=== PATIENT | male | born 1985 | race Caucasian/White ===

== ENCOUNTER 2019-04-15 11:59 | Emergency (ER) | payer OTHER, SELFPAY ==
[2019-04-15 12:01] VITALS: BP 137/87; PULSE 54; RESP 16; TEMP 36.4; O2SAT 98; BMI 30.1
--- NOTE | 2019-04-15 12:27 | CT_ITS ---
STUDY: CT ABDOMEN AND PELVIS WITHOUT CONTRAST REASON FOR EXAM: Male, 33 years old. Right flank pain x2 days RADIATION DOSAGE (If Supplied By Facility): CTDIvol = ( 11.25 ) mGy, DLP = ( 546.33 ) mGycm TECHNIQUE: Transaxial images were obtained from the dome of the diaphragm to the symphysis pubis without oral contrast, and without intravenous contrast. Sagittal and coronal images were reconstructed. Individualized dose optimization techniques were used for this CT. COMPARISON: None. FINDINGS: The visualized lung bases are unremarkable. The visualized portions of the heart are within normal limits. Normal liver. Normal gallbladder and extrahepatic biliary system. Normal spleen. Normal pancreas. Normal bilateral adrenal glands. Normal right kidney. Normal left kidney. Normal visualized stomach. Normal small intestine. Normal colon. The appendix is visualized and appears normal. Appendix best seen on coronal recon image 54 Normal abdominal aorta. Normal inferior vena cava. Normal retroperitoneum. Normal urinary bladder. Normal abdominal wall. Normal osseous structures. CT/Abdomen/Pelvis without Cont IMPRESSION: No suspicious solid organ abnormality specifically, no obstructive uropathy. No CT evidence of an acute inflammatory process, normal appendix visualized No free intraperitoneal fluid, air, or suspicious adenopathy Electronically Signed: Donte Schwarz MD at 13:17 EDT , Service support ,
--- NOTE | 2019-04-15 12:40 | ED.VIS.GEN ---
History of Present Illness Chief Complaint: Back Informant: Patient Onset: - April 13 Context: Sudden Onset Timing: Continuous, Waxes and wanes Quality: Pain Location: Right flank and right anterior abdomen Current Severity: Mild Maximum Severity: Severe Worsened by: Nothing Relieved by: Nothing Associated Symptoms: Nausea, vomiting and urgency Narrative: Patient is a healthy 33-year-old male presents with abrupt onset of right flank pain that radiated anteriorly and is waxing and waning nature. Pain is been constant since onset. He does report urgency. Denies history of renal or ureterolithiasis. He denies respiratory cardiac symptoms. He denies dysuria, frequency or hematuria. He denies food intolerance. He denies anorexia. He denies history of trauma. Prior similar symptoms: No Recent Illness/Hospitalization: No - Past Medical History (1) No significant past medical history Status: Acute Past Medical History - Allergies and Home Meds Allergies/Adverse Reactions: Allergies No Known Allergies Allergy (Verified 04/15/19 12:00) Primary Care Physician: Isaac Ryan [Primary Care Provider] - Prior records reviewed: No Past Medical History: None Surgical History: no surgical history Lives: Alone Smoking Status: Never smoker Drugs: None Review of Systems General: Denies: Chills, Fever, Sweats Eyes: Denies: Visual changes - bilaterally, Diplopia ENT: Denies: Rhinorrhea, Sore throat Cardiovascular: Denies: Chest pain, Palpitations Respiratory: Denies: Dyspnea, Cough, Dyspnea on exertion Gastrointestinal: Reports: Abdominal pain, Nausea, Vomiting. Denies: Diarrhea, Constipation, Melena, Hematochezia, -, - Genitourinary: Reports: - - Positive for urgency. Denies: Dysuria, Hematuria, Frequency Musculoskeletal: Reports: Back pain - Right flank. Denies: Myalgias, Arthralgias, Neck pain, Swelling, Extremity Pain, -, - Skin: Denies: Rash, Wounds Neurological: Denies: Headache, Weakness, Numbness Hematologic: Denies: Easy bruising, Easy bleeding Allergy: Denies: Uticaria, Swelling of the mouth Physical Exam Vital Signs/Narrative: Vital Signs Temp Pulse Resp BP Pulse Ox 04/15/19 12:01 97.6 F L 54 L 16 137/87 H 98 Inital Vital Signs reviewed: Yes General: Well nourished, Well developed, Acute Distress Head: Normocephalic, Atraumatic Eyes: Perrl, EOMI ENT: Moist mucous membranes, No rhinorrhea Neck: Supple, Nontender, No lymphadenopathy, No JVD Cardiovascular: Regular rate, Regular rhythm, No murmurs, Normal S1, Normal S2 Respiratory: No distress, CTA bilaterally, Chest nontender Abdomen: Soft, Nontender, Nondistended, Normal bowel sounds, No masses Back: Nontender, Normal Inspection, CVA tenderness - Right Extremities: Nontender, No edema Skin: Normal color, No rash Neurological: Alert, Oriented x3, Cranial nerves II-XII grossly intact, Normal Strength, Normal Sensation Psychological: Normal affect, Normal Mood Diagnostic/Tx/Re-eval Impressions Abdomen/Pelvis CT 04/15/19 12:27 IMPRESSION: No suspicious solid organ abnormality specifically, no obstructive uropathy. No CT evidence of an acute inflammatory process, normal appendix visualized No free intraperitoneal fluid, air, or suspicious adenopathy Electronically Signed: Donte Schwarz MD at 13:17 EDT , Service support , 04/15/19 12:27 Abdomen/Pelvis without Cont [CT] Stat Laboratory Results 04/15/19 04/15/19 12:05 12:52 Sodium 137 Potassium 3.8 Chloride 105 Carbon Dioxide 29.0 Anion Gap 3 L BUN 11 Creatinine 1.02 Estim Creat Clear Calc 83.68 Est GFR (MDRD) Af Amer 109 Est GFR (MDRD) Non-Af 90 BUN/Creatinine Ratio 10.8 Glucose 100 Calcium 8.6 Urine Color Yellow Urine Clarity Clear Urine pH 7.0 Ur Specific [place] 1.005 Urine Protein Negative Urine Glucose (UA) Normal Urine Ketones Negative Urine Occult Blood Negative Urine Nitrite Negative Urine Bilirubin Negative Urine Urobilinogen Normal Ur Leukocyte Esterase Negative Urine RBC 0 SEEN Urine WBC 0 SEEN Ur Squamous Epith Cells 0 SEEN Urine Bacteria 0 SEEN Urine Mucus 0 SEEN She was informed that pain is unknown. He does appear in discomfort. He may have a nonvisualized stone. Will discharge with short course of opiate analgesia. - Medical Decision Making History of acute right flank pain urgency nausea and vomiting will obtain CT of the abdomen and appropriate blood work to assess for renal/ureterolithiasis versus other causes of his left flank pain. He was medicated with IV Toradol and Zofran. Patient's work-up was unremarkable. He is to be discharged to home and follow-up with PCP. ED Disposition - Plan for ED Patient: Disposition: Home or Assisted Living Diagnosis: Acute left flank pain Instructions: FLANK PAIN, Uncertain Cause Prescriptions: Hydrocodone Bitart/Apap 5-325 [[place] 5MG-325MG] 1 tab PO Q6H PRN PRN 3 Days #10 tab PRN Reason: Pain Prescription Printed Referrals: Isaac Ryan [Primary Care Provider] - 3-5 Days if not improving
[2019-04-15 12:45] LABS: Bacteria 0 SEEN /hpf (None Seen); Mucous, Urine 0 SEEN /hpf (<or=2+); Red Blood Cells-Urine 0 SEEN /hpf (0-5); Squamous Epithelial Cells - UA 0 SEEN /hpf (0-5); White Blood Cells 0 SEEN /hpf (0-5)
[2019-04-15] MEDS: Ondansetron 4 MG/2 ML Vial IV (12:48)
[2019-04-15] MEDS: Ketorolac 30 MG/ML Syringe 15 MG IV (12:48)
[2019-04-15] MEDS: 0.9% Normal Saline 1,000 ML 250 ML IV (12:48)
[2019-04-15 12:51] LABS: Color, Urine Yellow (Yellow); Glucose, Dipstick Normal (Normal); Ketone-Dipstick Negative (Negative); Leukocyte Esterase-Dipstick Negative /ul (Negative); Nitrite-Dipstick Negative (Negative); Occult Blood-Urine Negative /ul (Negative); Protein-Dipstick Negative (Negative); Specific Gravity, Urine 1.005 (1.002-1.030); Urine Bilirubin Dipstick Negative (Negative); Urine Clarity Clear (Clear); Urine Urobilinogen Normal (Normal)
[2019-04-15 13:29] LABS: Anion Gap 3 (5-15); BUN 11 mg/dL (7-18); BUN/Creat Ratio 10.8 RATIO (10-20); Calcium,Total 8.6 mg/dL (8.5-10.1); Chloride 105 mmol/L (98-107); Creatinine, Serum 1.02 mg/dL (0.70-1.30); EST Glomerular Filtration Rate 90 mL/min (>60); Est Glom Filt Rate - Afr Amer 109 mL/min (>60); Estimated Creatinine Clearance 83.68 ml/min; Glucose 100 mg/dL (74-106); Potassium 3.8 mmol/L (3.5-5.1); Sodium Level 137 mmol/L (136-145)
[2019-04-15 13:45] VITALS: BP 106/71; PULSE 51; RESP 16; O2SAT 100
== END 2019-04-15 14:43 | disposition home or self-care (01) ==
PROVIDERS: Emergency Provider Emergency Medicine; Family Provider Family Medicine; PCP Family Medicine
DX: R10.9 Unspecified abdominal pain (principal)
CPT/HCPCS: 74176; 80048; 81001; 99283; J7030; A4216; J2405

== ENCOUNTER → 2020-11-30 11:51 | Outpatient (CLI) | payer OTHER, SELFPAY ==
[2020-11-30 15:11] LABS: Absolute Lymphocyte Count 1.68 X10^3/uL (0.83-4.51); Absolute Neutrophil Count 2.6 X10^3/uL (2.0-7.7); Basophil# 0.02 X10^3/uL; Basophil% 0.4 % (0-1); Eosinophil# 0.04 X10^3/uL; Eosinophils% 0.8 % (0-5); Hematocrit 48.2 % (40-54); Hemoglobin 16.2 g/dL (13.0-16.5); Lymphocyte # 1.68 X10^3/ul (4.0); Lymphocyte % 35.1 % (19-41); Mean Corp Hgb Conc 33.6 g/dL (32-36); Mean Corpuscular Hgb 29.1 pg (27.0-32.0); Mean Corpuscular Volume 86.5 fL (80-94); Mean Platelet Vol. 10.9 fl (6.2-12.0); Monocyte% 8.4 % (0-10); NRBC Flagged by Analyzer 0 % (0-5); Neutrophil # 2.62 X10^3/uL (2.7-7.7); Neutrophil % 54.9 % (47-70); Platelet Count 193 K/mm3 (150-450); RBC Distribution Width CV 11.9 % (11.6-14.6); Red Blood Count 5.57 M/mm3 (4.6-6.2); White Blood Count 4.8 K/mm3 (4.4-11.0)
[2020-11-30 15:43] LABS: ALB/GLOB Ratio 1.5 RATIO (0.9-2.4); AST(SGOT) 30 U/L (15-37); Alanine Aminotransfer ALT/SGPT 57 U/L (16-61); Albumin, Serum 4.4 g/dL (3.2-5.0); Alkaline Phosphatase 96 U/L (45-117); Anion Gap 5 (5-15); BUN 16 mg/dL (7-18); BUN/Creat Ratio 16.1 RATIO (10-20); Calcium,Total 9.1 mg/dL (8.5-10.1); Chloride 106 mmol/L (98-107); EST Glomerular Filtration Rate 91 mL/min (>60); Est Glom Filt Rate - Afr Amer 111 mL/min (>60); Free T3 3.2 pg/mL (2.18-3.98); Glucose 101 mg/dL (74-106); Potassium 4.2 mmol/L (3.5-5.1); Protein, Total 7.4 g/dL (6.4-8.2); Sodium Level 139 mmol/L (136-145); T4 Total, Thyroxin 8.5 ug/dL (4.5-12.1); Thyroid Stim Hormone (TSH) 0.96 uIU/mL (0.358-3.74)
[2020-12-03 07:44] LABS: Immunoglobulin A 301 mg/dL (90-386); t-Transglutaminase IgA <2 U/mL (0-3)
== END ==
LOC: MTLAB 12:00
PROVIDERS: PCP Family Medicine
DX: R10.9 Unspecified abdominal pain (principal); R19.5 Other fecal abnormalities; Z80.0 Family history of malignant neoplasm of digestive organs; Z86.010 Personal history of colon polyps
CPT/HCPCS: 36415; 80053; 82784; 83516; 84436; 84443; 84481; 85025

== ENCOUNTER 2021-05-29 09:50 | Emergency (ER) | payer OTHER, SELFPAY ==
[2021-05-29 09:51] VITALS: BP 119/89; PULSE 64; RESP 6; TEMP 36.1; O2SAT 100; BMI 33.6
--- NOTE | 2021-05-29 09:59 | NURSING ---
NO OLD EKGS
--- NOTE | 2021-05-29 10:07 | RAD_ITS ---
STUDY: X-RAY CHEST REASON FOR EXAM: Male, 35 years old. Chest pain and chest pressure. TECHNIQUE: Single AP portable view of the chest. COMPARISON: None. FINDINGS: The lungs are clear and expanded. There is no demonstrated pleural abnormality. Normal size heart. Normal mediastinum and danii. Normal visualized pulmonary arteries. Normal visualized aortic arch and descending thoracic aorta. Normal visualized thoracic spine. Normal visualized ribs, clavicles, and shoulders. There is no demonstrated abnormality of the visualized soft tissue structures of the upper abdomen. RAD/Chest 1 View (Portable) IMPRESSION: Normal x-ray examination of the chest. Electronically Signed: Gerber Sherwood MD at 10:53 EDT , Service support ,
--- NOTE | 2021-05-29 10:08 | ED.VIS.CHEST ---
HPI History of Present Illness Chief Complaint: Chest Pain Narrative Narrative: Patient presents with upper respiratory symptoms for the past few days, he has rhinorrhea sinus congestion and a cough which has improved, however he had some chest pain yesterday. He had 2 different negative Covid test. He has no fever or chills. Today he is presenting with sharp stabbing retrosternal chest pain. No pleuritic component. No lower extremity edema or calf pain. No DVT or PE risk factors. PFSH PFSH Home Medications naproxen [Naprosyn] 500 mg PO BID #20 tab 05/29/21 [Rx Last Taken Unknown] Allergy/AdvReac Type Severity Reaction Status Date / Time No Known Allergies Allergy Verified 04/15/19 12:00 Social History Smoking Status: Never smoker ROS ROS ED ROS Narrative Past medical history: Reviewed, no medical problems Medications: Reviewed Social history: Noncontributory Review of systems: All systems negative except as indicated General: No fever Eyes: No visual changes ENT: Upper airway congestion as in HPI Neck: No neck pain Cardiovascular: Nonpleuritic sharp stabbing chest pain as in HPI Respiratory: No shortness of breath or cough Gastrointestinal: No abdominal pain, nausea vomiting or diarrhea Genitourinary: No dysuria Musculoskeletal: Denies myalgias no difficulty with ambulation Skin: No rash Neurological: No memory loss, confusion or any focal weakness Psych: No recent behavioral changes Hematologic: No easy bleeding or easy bruising EXAM Physical Exam Narrative Exam Narrative: Physical exam General: Well nourished, Well developed, No Acute Distress Head: Normocephalic, Atraumatic Eyes: Conjunctiva not pale ENT: Moist mucous membranes. There is rhinorrhea and upper airway congestion. Normal soft palate. No pharyngeal erythema other than some postnasal drip. Neck: Supple, Nontender, No lymphadenopathy Cardiovascular: Regular rate, Regular rhythm Respiratory: No distress, CTA bilaterally. Chest wall: There is some reproducible retrosternal and parasternal pain bilaterally. Abdomen: Soft, Nontender, Nondistended Back: Nontender, Normal Inspection. Negative for: CVA tenderness Extremities: Nontender, No edema Skin: Normal color, No rash Neurological: Alert, Normal Strength, Normal Sensation Psychological: Normal affect Const Vital Signs: 05/29/21 09:51 Temperature 96.9 F L Temperature Source Temporal Pulse Rate 64 Respiratory Rate 6 L Blood Pressure 119/89 H Blood Pressure Mean 99 Pulse Ox 100 Oxygen Delivery Method Room Air Heart Score History: Slightly/Non-Suspicious ECG: Normal Age: </= 45 years Risk Factors: 1 or 2 Risk Factors Troponin: </= Normal Limit Score: 1 MDM MDM MDM Narrative Medical decision making narrative: Patient has a normal work-up. He appears well. He does not have any DVT or PE risk factors. He will be discharged with NSAIDs. Lab Data Labs: Laboratory Results - last 24 hr 05/29/21 10:45 Troponin I High Sens 5 Radiography Diagnostic Testing: Radiology Impression Chest X-Ray 05/29/21 10:07 IMPRESSION: Normal x-ray examination of the chest. Electronically Signed: Gerber Sherwood MD at 10:53 EDT , Service support , Discharge Plan Triage Chief Complaint: Chest Pain ED Provider: Fer Lopez Dx/Rx/DC Orders Clinical Impression: Acute upper respiratory infection, Acute chest wall pain Instructions: Pleurisy, ED URI, Viral, No Abx (Adult) Prescriptions: New naproxen [Naprosyn] 500 mg tablet 500 mg PO BID Qty: 20 RF: 0 Primary Care Provider: Isaac Ryan Referrals: Isaac Ryan MD [Primary Care Provider] - 2 Days Disposition Disposition: Home, Self Care
--- NOTE | 2021-05-29 10:32 | EKG12_ITS ---
Test Reason : CP Blood Pressure : / mmHG Vent. Rate : 051 BPM Atrial Rate : 051 BPM P-R Int : 188 ms QRS Dur : 090 ms QT Int : 424 ms P-R-T Axes : -13 -13 006 degrees QTc Int : 390 ms Sinus bradycardia Otherwise normal ECG Confirmed by AFRICA BANKS, TAWANNA ([id number]), field map editor ARSH GUZMAN ([id number]) on 05/31/2021 9:09:36 AM Referred By: RHONDA/BRANDAN Confirmed By:TAWANNA LEGER MD
--- NOTE | 2021-05-29 10:37 | NURSING ---
NO OLD EKGS
[2021-05-29 11:11] LABS: Troponin-I HS 5 pg/mL (3.0-78.0)
[2021-05-29 12:43] VITALS: BP 116/74; PULSE 85; RESP 16; O2SAT 98
== END 2021-05-29 12:43 | disposition home or self-care (01) ==
PROVIDERS: Emergency Provider Emergency Medicine; PCP Family Medicine
DX: J06.9 Acute upper respiratory infection, unspecified (principal); R07.89 Other chest pain; Z20.822 Contact with and (suspected) exposure to COVID-19; Z79.1 Long term (current) use of non-steroidal anti-inflammatories (NSAID)
CPT/HCPCS: 36415; 71045; 84484; 93005; 99282

== ENCOUNTER 2021-07-02 18:36 | Emergency (ER) | payer OTHER, SELFPAY ==
[2021-07-02 18:37] VITALS: BP 119/81; PULSE 82; RESP 18; TEMP 37.2; O2SAT 97; BMI 32.9
[2021-07-02 18:58] LABS: Absolute Lymphocyte Count 2.45 X10^3/uL (0.83-4.51); Absolute Neutrophil Count 4.1 X10^3/uL (2.0-7.7); Basophil# 0.03 X10^3/uL; Basophil% 0.4 % (0-1); Eosinophil# 0.06 X10^3/uL; Eosinophils% 0.8 % (0-5); Hematocrit 44.1 % (40-54); Hemoglobin 15.6 g/dL (13.0-16.5); Lymphocyte # 2.45 X10^3/ul (0.83-4.51); Lymphocyte % 33.8 % (19-41); Mean Corp Hgb Conc 35.4 g/dL (32-36); Mean Corpuscular Hgb 29.7 pg (27.0-32.0); Mean Platelet Vol. 9.8 fl (6.2-12.0); Monocyte# 0.63 X10^3/uL; Monocyte% 8.7 % (0-10); NRBC Flagged by Analyzer 0 % (0-5); Neutrophil # 4.05 X10^3/uL (2.7-7.7); Platelet Count 208 K/mm3 (150-450); RBC Distribution Width CV 12.1 % (11.6-14.6); RBC Distribution Width SD 36.4 fl (35.1-43.9); Red Blood Count 5.25 M/mm3 (4.6-6.2); White Blood Count 7.2 K/mm3 (4.4-11.0)
--- NOTE | 2021-07-02 19:08 | EDS_ITS ---
HPI HPI - GI History of Present Illness Chief Complaint: Abd Pain Narrative Narrative: 35-year-old male presenting with right lower quadrant abdominal pain. He states he woke up early this morning with a dull ache and is persistently been getting worse over the course of the day. He does not have nausea or vomiting. He does have loose stool chronically but states it is a little bit looser today. He has not had a fever. Patient states his only surgical history is gallbladder removal. Patient has no daily medications that he takes. PFSH PFSH Allergy/AdvReac Type Severity Reaction Status Date / Time No Known Allergies Allergy Verified 07/02/21 18:36 Surgical History History of cholecystectomy Social History Smoking Status: Never smoker ROS ROS ED Constitutional Constitutional ED: Denies chills, fever(s) or subjective ENT ENT ED: Denies rhinorrhea or sore throat Cardiovascular Cardiovascular: Denies chest pain or palpitations Respiratory/Chest Respiratory/Chest: Denies cough or dyspnea Gastrointestinal Gastrointestinal: Reports abdominal pain and diarrhea; Denies constipation or vomiting Genitourinary Genitourinary ED: Denies dysuria or hematuria Musculoskeletal Musculoskeletal: Denies arthralgias or myalgias Integumentary Denies Abrasions or rash Neurologic Neurologic: Denies headache(s) EXAM Physical Exam Const Vital Signs: 07/02/21 18:37 07/02/21 20:28 07/02/21 22:14 Temperature 99.0 F Temperature Source Temporal Pulse Rate 82 61 70 Respiratory Rate 18 17 16 Blood Pressure 119/81 H 121/86 H 120/79 Blood Pressure Mean 93 97 92 Pulse Ox 97 98 97 Oxygen Delivery Method Room Air Room Air Room Air Positive well nourished General Appearance ED: NAD; Negative for pallor HEENT Reports moist mucous membranes normocephalic and atraumatic Eyes PERRL and EOMs intact bilaterally General Eye ED: Negative for pale conjunctiva or scleral icterus Resp normal respiratory effort Cardio regular rate and regular rhythm GI Palpation: tender RLQ Neuro Sensorium / Orientation: alert, oriented to person, oriented to place and oriented to time Psych mental status grossly normal and thought process normal Skin General Skin Exam: Negative for jaundice or pallor MDM MDM MDM Narrative Medical decision making narrative: 35-year-old male presenting with right lower quadrant pain. I did obtain blood work and his CBC and BMP are completely normal. His urinalysis is negative for blood or infection. CT abdomen pelvis with IV contrast shows no acute appendicitis and the appendix is seen. I discussed the patient's case with Dr. Linares due to his continued pain after morphine he was given Dilaudid. She recommended getting a CT of the abdomen pelvis with oral contrast which was performed. The appendix again is identified and there is no acute intra-abdominal process seen. Patient has not required any more pain medication. Patient counseled that if he continues to have pain he should return to the ER for repeat evaluation. It is unclear what the etiology of his pain is but does not appear to be anything emergent based on his work-up today. Impression: 1. Right lower quadrant abdominal pain Lab Data Attestation: I reviewed the patient's lab results. Labs: Laboratory Results - last 24 hr 07/02/21 07/02/21 07/02/21 18:53 18:53 19:18 WBC 7.2 RBC 5.25 Hgb 15.6 Hct 44.1 MCV 84.0 MCH 29.7 MCHC 35.4 RDW Std Deviation 36.4 RDW Coeff of [place] 12.1 Plt Count 208 MPV 9.8 Immature Gran % (Auto) 0.300 Neut % (Auto) 56.0 Lymph % (Auto) 33.8 [place] % (Auto) 8.7 Eos % (Auto) 0.8 Baso % (Auto) 0.4 Absolute Neuts (auto) 4.1 Absolute Lymphs (auto) 2.45 Nucleated RBC % 0 Sodium 139 Potassium 3.8 Chloride 105 Carbon Dioxide 26.0 Anion Gap 8 BUN 11 Creatinine 1.05 Estim Creat Clear Calc 79.78 Est GFR (MDRD) Af Amer 104 Est GFR (MDRD) Non-Af 86 BUN/Creatinine Ratio 10.5 Glucose 127 H Calcium 8.9 Urine Color Yellow Urine Clarity Clear Urine pH 6.5 Ur Specific [place] 1.015 Urine Protein Negative Urine Glucose (UA) Normal Urine Ketones Negative Urine Occult Blood Negative Urine Nitrite Negative Urine Bilirubin Negative Urine Urobilinogen Normal Ur Leukocyte Esterase Negative Urine RBC 0 SEEN Urine WBC 0 SEEN Ur Squamous Epith Cells 0 SEEN Urine Bacteria 0 SEEN Urine Mucus 0 SEEN Radiography Diagnostic Testing: Clinical Impression(s) from Imaging Studies Abdomen/Pelvis CT 07/02/21 19:50 IMPRESSION: Unremarkable abdomen, no acute disease. Normal appendix. Electronically Signed: Carmella Hercules MD at 20:06 EDT Tel , Service support , Abdomen CT 07/02/21 20:50 IMPRESSION: 1. Normal appendix. 2. No evidence of acute intra-abdominal or pelvic process or major interval change. Electronically Signed: Joel Montelongo DO at 23:08 EDT Tel [phone], Service support , Discharge Plan Triage Chief Complaint: Abd Pain ED Provider: Skip Lopez Dx/Rx/DC Orders Instructions: ED Abdominal Pain Unkn Cause Male... Primary Care Provider: Isaac Ryan Referrals: Isaac Ryan MD [Primary Care Provider] - Disposition Disposition: Home, Self Care Discharge Date/Time: 07/02/21 23:17
[2021-07-02 19:24] LABS: Bacteria 0 SEEN /hpf (None Seen); Mucous, Urine 0 SEEN /hpf (<or=2+); Red Blood Cells-Urine 0 SEEN /hpf (0-5); Squamous Epithelial Cells - UA 0 SEEN /hpf (0-5); White Blood Cells 0 SEEN /hpf (0-5)
[2021-07-02] MEDS: Morphine 4 MG/ML Syringe IV (19:27)
[2021-07-02] MEDS: Ondansetron 4 MG/2 ML Vial IV (19:27)
[2021-07-02 19:31] LABS: Color, Urine Yellow (Yellow); Glucose, Dipstick Normal (Normal); Ketone-Dipstick Negative (Negative); Leukocyte Esterase-Dipstick Negative /ul (Negative); Nitrite-Dipstick Negative (Negative); Occult Blood-Urine Negative /ul (Negative); Protein-Dipstick Negative (Negative); Specific Gravity, Urine 1.015 (1.002-1.030); Urine Bilirubin Dipstick Negative (Negative); Urine Clarity Clear (Clear); Urine Urobilinogen Normal (Normal); Urine pH 6.5 (5.0 - 8.0)
[2021-07-02 19:41] LABS: Anion Gap 8 (5-15); BUN 11 mg/dL (7-18); BUN/Creat Ratio 10.5 RATIO (10-20); Calcium,Total 8.9 mg/dL (8.5-10.1); Chloride 105 mmol/L (98-107); Creatinine, Serum 1.05 mg/dL (0.70-1.30); EST Glomerular Filtration Rate 86 mL/min (>60); Est Glom Filt Rate - Afr Amer 104 mL/min (>60); Estimated Creatinine Clearance 79.78 ml/min; Glucose 127 mg/dL (74-106); Potassium 3.8 mmol/L (3.5-5.1); Sodium Level 139 mmol/L (136-145)
--- NOTE | 2021-07-02 19:50 | CT_ITS ---
STUDY: CT ABDOMEN AND PELVIS WITH CONTRAST REASON FOR EXAM: Male, 35 years old. Right lower quadrant pain abdominal pain RADIATION DOSAGE (If Supplied By Facility): CTDIvol = ( 17.75 ) mGy, DLP = ( 953.77 ) mGycm TECHNIQUE: CT images were obtained from the dome of the diaphragm to the symphysis pubis without oral contrast. IV 100mL [id number]-[id number] was administered. Sagittal and coronal images were reconstructed. Individualized dose optimization techniques were used for this CT. COMPARISON: 15 April 2019 FINDINGS: The visualized lung bases are unremarkable. The visualized portions of the heart are within normal limits. Normal liver. There is a presumed hemangioma in subcapsular segment 7 at 1.2 cm. Gallbladder is removed.. Normal spleen. Normal pancreas. Normal bilateral adrenal glands. Normal right kidney. Normal left kidney. Normal visualized stomach. Normal small intestine. Normal colon. The appendix is visualized and appears normal. Normal abdominal aorta. Normal inferior vena cava. Normal retroperitoneum. Normal urinary bladder. Normal abdominal wall. Normal osseous structures. CT/Abdomen/Pelvis W IV Cont ONLY IMPRESSION: Unremarkable abdomen, no acute disease. Normal appendix. Electronically Signed: Carmella Hercules MD at 20:06 EDT Tel , Service support ,
[2021-07-02 20:28] VITALS: BP 121/86; PULSE 61; RESP 17; O2SAT 98
[2021-07-02] MEDS: HYDROmorphone 0.5 MG/0.5 ML SYRINGE IV (20:45)
--- NOTE | 2021-07-02 20:50 | CT_ITS ---
STUDY: CT ABDOMEN AND PELVIS WITHOUT CONTRAST REASON FOR EXAM: Male, 35 years old. Right lower quadrant pain since this morning.. RADIATION DOSAGE (If Supplied By Facility): CTDIvol = ( 8.49 ) mGy, DLP = ( 428.28 ) mGycm TECHNIQUE: Transaxial images were obtained from the dome of the diaphragm to the symphysis pubis with oral contrast, and without intravenous contrast. Sagittal and coronal images were reconstructed. Individualized dose optimization techniques were used for this CT. COMPARISON: CT of the abdomen pelvis, 07/02/2021 (1950) FINDINGS: The visualized lung bases are unremarkable. The visualized portions of the heart are within normal limits. Normal liver. There are surgical clips in the gallbladder fossa consistent with a prior cholecystectomy. Normal spleen. Normal pancreas. Normal bilateral adrenal glands. Normal right kidney. Normal left kidney. Normal ureters. Normal visualized stomach. Normal small intestine. Normal colon. The appendix is visualized and appears normal. Normal abdominal aorta. Normal inferior vena cava. Normal retroperitoneum. Normal urinary bladder. Normal prostate. No pelvic lymphadenopathy. No free air or free fluid is seen within the peritoneal cavity. Normal abdominal wall. Normal osseous structures. CT/Abdomen/Pel W ORAL Cont Only IMPRESSION: 1. Normal appendix. 2. No evidence of acute intra-abdominal or pelvic process or major interval change. Electronically Signed: Joel Montelongo DO at 23:08 EDT Tel [phone], Service support ,
[2021-07-02 22:14] VITALS: BP 120/79; PULSE 70; RESP 16; O2SAT 97
== END 2021-07-02 23:17 | disposition home or self-care (01) ==
PROVIDERS: Emergency Provider Student in an Organized Health Care Education/Training Program; PCP Family Medicine
DX: R10.31 Right lower quadrant pain (principal); R19.7 Diarrhea, unspecified; Z90.49 Acquired absence of other specified parts of digestive tract
CPT/HCPCS: 74176; 74177; 80048; 81001; 85025; 90471; 96374; 96375; 99285; Q9967; A4216; J2405

== ENCOUNTER 2021-07-03 08:57 | Emergency (ER) | payer OTHER, SELFPAY ==
[2021-07-03 08:57] VITALS: BP 125/83; PULSE 75; RESP 16; TEMP 36.3; O2SAT 99; BMI 32.9
--- NOTE | 2021-07-03 09:51 | EX.ED.DYSGE1 ---
HPI History of Present Illness Chief Complaint: Abd Pain Narrative Narrative: 35 year old male presenting with abdominal pain. Patient states he began having right lower quadrant abdominal pain yesterday. He was seen in the ED yesterday and had a CT of his abdomen pelvis which was unremarkable. He complains of persistent and worsening pain in the right lower quadrant. He has nausea with no vomiting. He has decreased appetite. Denies fever. Recent Illness/Hospitalization: No PFSH PFSH Home Medications hydrocodone-acetaminophen 1 tab PO Q6H PRN PRN 3 Days #10 tablet 07/03/21 [Rx Last Taken Unknown] Allergy/AdvReac Type Severity Reaction Status Date / Time No Known Allergies Allergy Verified 07/03/21 08:59 Surgical History History of cholecystectomy Social History Smoking Status: Never smoker ROS ROS ED Constitutional Constitutional ED: Denies fever(s) Eyes Eyes: Denies change in vision ENT ENT ED: Denies rhinorrhea or sore throat Cardiovascular Cardiovascular: Denies chest pain or palpitations Respiratory/Chest Respiratory/Chest: Denies cough or dyspnea Gastrointestinal Gastrointestinal: Reports abdominal pain and nausea; Denies diarrhea or vomiting Genitourinary Genitourinary ED: Denies dysuria Musculoskeletal Musculoskeletal: Denies myalgias Integumentary Denies rash Neurologic Neurologic: Denies headache(s) Psychiatric Psychiatric: Denies suicidal thoughts EXAM Physical Exam Const Vital Signs: 07/03/21 08:57 07/03/21 11:07 Temperature 97.3 F L Temperature Source Temporal Pulse Rate 75 81 Respiratory Rate 16 18 Blood Pressure 125/83 H Blood Pressure Mean 97 Pulse Ox 99 98 Oxygen Delivery Method Room Air Room Air Positive well nourished and well developed General Appearance ED: well developed HEENT Reports normocephalic and head/scalp atraumatic Eyes PERRL and EOMs intact bilaterally Neck supple General: Negative for tenderness Chest Wall inspection of chest normal Resp normal respiratory effort and clear to auscultation bilaterally Cardio regular rate and regular rhythm GI non-distended Palpation: soft and tender RLQ and McBurney's point; Negative for guarding or rebound tenderness present no CVA tenderness Extremity normal to inspection Neuro oriented x3 Sensorium / Orientation: alert Psych mental status grossly normal MDM MDM MDM Narrative Medical decision making narrative: Patient was given IV fluids, morphine, Zofran. CBC, chemistries are unremarkable. Urinalysis unremarkable. CT abdomen pelvis with IV and oral contrast was obtained which shows mesenteric adenitis, small right hydrocele. Testicular ultrasound shows status post resection of the right epididymis, small left epididymal cyst. Patient was advised of these findings. He is given prescription for short course of [place]. Advised to follow up with primary care physician. Advised return to ED if worsening complaints. Lab Data Attestation: I reviewed the patient's lab results. Labs: Laboratory Results - last 24 hr 07/03/21 07/03/21 07/03/21 09:08 09:08 10:04 WBC 6.2 RBC 5.21 Hgb 16.0 Hct 44.3 MCV 85.0 MCH 30.7 MCHC 36.1 H RDW Std Deviation 37.1 RDW Coeff of Cassandra 12.1 Plt Count 203 MPV 10.5 Immature Gran % (Auto) 0.500 Neut % (Auto) 51.9 Lymph % (Auto) 36.4 [place] % (Auto) 9.1 Eos % (Auto) 1.8 Baso % (Auto) 0.3 Absolute Neuts (auto) 3.2 Absolute Lymphs (auto) 2.27 Nucleated RBC % 0 Sodium 138 Potassium 4.2 Chloride 103 Carbon Dioxide 25.0 Anion Gap 10 BUN 14 Creatinine 1.09 Estim Creat Clear Calc 76.85 Est GFR (MDRD) Af Amer 99 Est GFR (MDRD) Non-Af 82 BUN/Creatinine Ratio 12.8 Glucose 137 H Calcium 8.4 L Total Bilirubin 0.50 AST 35 ALT 59 Alkaline Phosphatase 103 Total Protein 7.2 Albumin 3.8 Globulin 3.4 Albumin/Globulin Ratio 1.1 Urine Color Yellow Urine Clarity Clear Urine pH 6.0 Ur Specific [place] 1.025 Urine Protein Negative Urine Glucose (UA) Normal Urine Ketones Negative Urine Occult Blood Negative Urine Nitrite Negative Urine Bilirubin Negative Urine Urobilinogen Normal Ur Leukocyte Esterase Negative Urine RBC 0 SEEN Urine WBC 0 SEEN Ur Squamous Epith Cells 0 SEEN Urine Bacteria RARE Urine Mucus RARE Radiography Diagnostic Testing: Clinical Impression(s) from Imaging Studies Testicular Ultrasound 07/03/21 10:36 IMPRESSION: Status post resection of the right epididymis. Small left epididymal cyst. Electronically Signed: Gerber Sherwood MD at 13:02 EDT , Service support , Abdomen/Pelvis CT 07/03/21 10:37 IMPRESSION: Findings suggestive of mesenteric adenitis. Small right hydrocele. Electronically Signed: Gerber Sherwood MD at 12:59 EDT , Service support , Discharge Plan Triage Chief Complaint: Abd Pain ED Provider: Latrice Colon Dx/Rx/DC Orders Clinical Impression: Mesenteric adenitis Instructions: ED Adenitis, Mesenteric Prescriptions: New hydrocodone-acetaminophen 5-325 mg tablet 1 tab PO Q6H PRN PRN (Reason: Pain) 3 Days Qty: 10 RF: 0 Primary Care Provider: Isaac Ryan Referrals: Isaac Ryan MD [Primary Care Provider] - Disposition Disposition: Home, Self Care
[2021-07-03 09:59] LABS: Absolute Lymphocyte Count 2.27 X10^3/uL (0.83-4.51); Absolute Neutrophil Count 3.2 X10^3/uL (2.0-7.7); Basophil# 0.02 X10^3/uL; Basophil% 0.3 % (0-1); Eosinophil# 0.11 X10^3/uL; Eosinophils% 1.8 % (0-5); Hematocrit 44.3 % (40-54); Lymphocyte # 2.27 X10^3/ul (0.83-4.51); Lymphocyte % 36.4 % (19-41); Mean Corp Hgb Conc 36.1 g/dL (32-36); Mean Corpuscular Hgb 30.7 pg (27.0-32.0); Mean Platelet Vol. 10.5 fl (6.2-12.0); Monocyte# 0.57 X10^3/uL; Monocyte% 9.1 % (0-10); NRBC Flagged by Analyzer 0 % (0-5); Neutrophil # 3.24 X10^3/uL (2.7-7.7); Neutrophil % 51.9 % (47-70); Platelet Count 203 K/mm3 (150-450); RBC Distribution Width CV 12.1 % (11.6-14.6); RBC Distribution Width SD 37.1 fl (35.1-43.9); Red Blood Count 5.21 M/mm3 (4.6-6.2); White Blood Count 6.2 K/mm3 (4.4-11.0)
[2021-07-03] MEDS: Morphine 4 MG/ML Syringe IV ×2 (10:00→14:44)
[2021-07-03] MEDS: Ondansetron 4 MG/2 ML Vial IV (10:00)
[2021-07-03] MEDS: 0.9% Normal Saline 1,000 ML 1000 ML IV (10:00)
[2021-07-03 10:12] LABS: Red Blood Cells-Urine 0 SEEN /hpf (0-5); Squamous Epithelial Cells - UA 0 SEEN /hpf (0-5); White Blood Cells 0 SEEN /hpf (0-5)
[2021-07-03 10:14] LABS: Color, Urine Yellow (Yellow); Glucose, Dipstick Normal (Normal); Ketone-Dipstick Negative (Negative); Leukocyte Esterase-Dipstick Negative /ul (Negative); Nitrite-Dipstick Negative (Negative); Occult Blood-Urine Negative /ul (Negative); Protein-Dipstick Negative (Negative); Specific Gravity, Urine 1.025 (1.002-1.030); Urine Bilirubin Dipstick Negative (Negative); Urine Clarity Clear (Clear); Urine Urobilinogen Normal (Normal)
[2021-07-03 10:23] LABS: Bacteria RARE /hpf (None Seen); Mucous, Urine RARE /hpf (<or=2+)
[2021-07-03 10:36] LABS: ALB/GLOB Ratio 1.1 RATIO (0.9-2.4); AST(SGOT) 35 U/L (15-37); Alanine Aminotransfer ALT/SGPT 59 U/L (16-61); Albumin, Serum 3.8 g/dL (3.2-5.0); Alkaline Phosphatase 103 U/L (45-117); Anion Gap 10 (5-15); BUN 14 mg/dL (7-18); BUN/Creat Ratio 12.8 RATIO (10-20); Calcium,Total 8.4 mg/dL (8.5-10.1); Chloride 103 mmol/L (98-107); Creatinine, Serum 1.09 mg/dL (0.70-1.30); EST Glomerular Filtration Rate 82 mL/min (>60); Est Glom Filt Rate - Afr Amer 99 mL/min (>60); Estimated Creatinine Clearance 76.85 ml/min; Globulin 3.4 g/dL (2.2-4.2); Glucose 137 mg/dL (74-106); Potassium 4.2 mmol/L (3.5-5.1); Protein, Total 7.2 g/dL (6.4-8.2); Sodium Level 138 mmol/L (136-145)
--- NOTE | 2021-07-03 10:36 | US_ITS ---
STUDY: SCROTUM ULTRASOUND REASON FOR EXAM: Male, 35 years old. Right lower quadrant pain. TECHNIQUE: Ultrasound evaluation of the scrotum was performed with color Doppler and static danielle-scale imaging. COMPARISON: None. FINDINGS: RIGHT TESTICLE INTRATESTICULAR: There is a normal size of the right testicle. The right testicle measures 4.1 cm x 3.3 cm x 2.3 cm. There is a homogenous echotexture. There is normal arterial and normal venous vascularity. There is no demonstrated right testicular mass or cyst. EXTRATESTICULAR: The epididymis has been removed. There is no demonstrated hydrocele. There is no demonstrated varicocele. There is no demonstrated extratesticular mass or cyst. LEFT TESTICLE INTRATESTICULAR: There is a normal size of the left testicle. The left testicle measures 4.1 cm x 3.4 cm x 2 cm. There is a homogenous echotexture. There is normal arterial and normal venous vascularity. There is no demonstrated left testicular mass or cyst. EXTRATESTICULAR: The epididymis is normal in size. The epididymis head measures 0.6 cm x 0.9 cm x 1.3 cm. There is normal vascularity of the epididymis. There is a cystic structure within the epididymis, with low level echoes, consistent with a spermatocele. This measures 2 mm x 3 mm x 3 mm. There is no demonstrated hydrocele. There is no demonstrated varicocele. There is no demonstrated extratesticular mass or cyst. US/Testicular with Arterial Flow IMPRESSION: Status post resection of the right epididymis. Small left epididymal cyst. Electronically Signed: Gerber Sherwood MD at 13:02 EDT , Service support ,
--- NOTE | 2021-07-03 10:37 | CT_ITS ---
STUDY: CT ABDOMEN AND PELVIS WITH CONTRAST REASON FOR EXAM: Male, 35 years old. RLQ pain -- IV PO Contrast RADIATION DOSAGE (If Supplied By Facility): CTDIvol = ( 15.95 ) mGy, DLP = ( 1091.84 ) mGycm TECHNIQUE: Transaxial images were obtained from the dome of the diaphragm to the symphysis pubis with oral contrast. Oral and amp; IV Gastrografin and amp; 100mL Isovue-300 was administered. Sagittal and coronal images were reconstructed. Individualized dose optimization techniques were used for this CT. COMPARISON: Comparison is made with prior examination done 07/02/2021. FINDINGS: The visualized lung bases are unremarkable. The visualized portions of the heart are within normal limits. Normal liver. There are surgical clips in the gallbladder fossa consistent with a prior cholecystectomy. Normal spleen. Normal pancreas. Normal bilateral adrenal glands. Normal right kidney. Normal left kidney. Normal visualized stomach. Normal small intestine. There are scattered colonic diverticula consistent with diverticulosis. The appendix is visualized and appears normal. Small lymph nodes are seen in the mesenteric fat in the right lower quadrant suggestive of a mesenteric adenitis. Normal abdominal aorta. Normal inferior vena cava. Normal retroperitoneum. Normal urinary bladder. Right sided hydrocele. Normal abdominal wall. Normal osseous structures. CT/Abdomen/Pelvis WITH Contrast IMPRESSION: Findings suggestive of mesenteric adenitis. Small right hydrocele. Electronically Signed: Gerber Sherwood MD at 12:59 EDT , Service support ,
[2021-07-03] MEDS: HYDROmorphone 1 MG/ML Syringe IV (11:00)
[2021-07-03 11:07] VITALS: PULSE 81; RESP 18; O2SAT 98
[2021-07-03 15:21] VITALS: BP 118/81; PULSE 75; RESP 18; O2SAT 97
== END 2021-07-03 15:22 | disposition home or self-care (01) ==
PROVIDERS: Emergency Provider Emergency Medicine; PCP Family Medicine
DX: I88.0 Nonspecific mesenteric lymphadenitis (principal); N50.3 Cyst of epididymis; N43.3 Hydrocele, unspecified; Z90.49 Acquired absence of other specified parts of digestive tract
CPT/HCPCS: 74177; 76870; 80053; 81001; 85025; 93976; 96361; 96374; 96375; 96376; 99283; Q9967; A4216; J2405

== ENCOUNTER → 2021-08-27 09:38 | Outpatient (CLI) | payer OTHER, SELFPAY ==
[2021-08-27 11:08] LABS: Erythrocyte Sedimentation Rate 8 mm/hr (0-20)
[2021-08-27 11:33] LABS: CRP < 2.90 mg/L (0.0-3.0); LDH 237 U/L (87-241)
[2021-08-28 15:09] LABS: Anti-Centromere B Ab <0.2 AI (0.0-0.9); Anti-Chromatin <0.2 AI (0.0-0.9); Anti-Jo <0.2 AI (0.0-0.9); Anti-Scleroderma-70 AB <0.2 AI (0.0-0.9); Anti-ribosomal P Antibodies <0.2 AI (0.0-0.9); RNP Ab 0.4 AI (0.0-0.9); SJOGREN'S Anti-SS-A test < 0.2 AI (0.0-0.9); SJOGREN'S Anti-SS-B test < 0.2 AI (0.0-0.9); Smith Ab <0.2 AI (0.0-0.9); Smith/RNP Ab <0.2 AI (0.0-0.9)
[2021-08-29 16:06] LABS: Anti-dsDNA Ab 1 IU/mL (0-9)
== END ==
LOC: LAB 09:40
PROVIDERS: PCP Family Medicine; Visit Provider Internal Medicine Gastroenterology
DX: R10.9 Unspecified abdominal pain (principal); I88.0 Nonspecific mesenteric lymphadenitis
CPT/HCPCS: 36415; 82164; 82533; 82784; 82785; 83516; 83615; 85652; 86038; 86140; 86225; 86226; 86235; 86255; 86256

== ENCOUNTER 2021-09-20 08:46 | Day surgery (SDC) | payer OTHER, SELFPAY ==
[2021-09-20] VITALS (7 sets, daily range): BP systolic 95–118; BP diastolic 62–79; PULSE 65–74; RESP 16; TEMP 36.2–36.5; O2SAT 93–98; BMI 32.0
--- NOTE | 2021-09-20 09:36 | PCM.HP.BLA ---
History and Physical Date of Admission: 09/20/21 35 M who presents to the office today for For the last 7-8 years has had difficulty with bowel issues. Last several months he is getting chest pain, bloating, cramping, abdominal pain and watery/loose diarrhea denies blood or mucous. Symptoms have affected his sleep. Abdominal pain specifically RLQ and presented to ED with finding of diverticulosis and mesenteric adenitis. Has changed diet to eliminate gluten, soda, alcohol, smoking. Exercises frequently. Saw another fur buyer who was seen for IBS and recommended cholestyramine which was unavailable for several weeks and not started. Also gave hyoscyamine which helped with cramping but not pressure. Attempted CBD oil without effect. S/P cholecystectomy 2019. Last colonoscopy performed 2018 he reports polyps. First colonoscopy performed seven years prior with diagnosis of IBS. Presented to [facility] ED. 05/29/21 ? upper respiratory symptoms with chest pain and sharp stabbing retrosternal pain. Workup to include EKG performed were without remark and he was discharged home. 07/02/21 ? RLQ pain that got progressively worse through the day without nausea/vomiting but positive for loose stool. CT abd/pel were performed without remark. Pain medication administered and he was discharged home. CT abd/pel performed 07/02/21 noted to be unremarkable for acute disease. presumed hemangioma in subcapsular segment [address] abdomen performed 07/02/21 noted to be unremarkable for acute disease. 07/03/21 ? continued RLQ pain and decreased appetite. Pain medication given and advised to follow up with PCP. Testicular US performed 07/03/21 found Right epididymis to be status post resection. Small left epididymal cyst. CT abd/pel performed 07/03/21 found diverticulosis scattered thoughout colon. Small lymph nodes seen in mesenteric fat of RLQ suggestive of mesenteric adenitis. Right hydrocele. ROS Const Constitutional: Positive for fatigue, weakness and weight change Cardio Cardiology: Positive for chest pain at rest Gastro GI: Positive for abdominal pain, bloating, diarrhea, heartburn and nausea/dyspepsia Musc Musculoskeletal: Positive for muscle weakness Neuro Neurology: Positive for weakness Psych Psychiatric: Positive for hyperactivity Endo Endocrine: Positive for fatigue, increased urine leakage and weight change Exam Const General: cooperative and comfortable Nutritional Appearance: average body habitus and well nourished HENMT Head: normal to inspection Ears: hearing grossly normal bilaterally Nose: external nose normal Face and sinus: normal facial exam Mouth: oral mucosae normal Throat: posterior oropharynx normal Eyes General: appearance normal, both eyes and all related structures Neck Neck: normal visual inspection Chest Chest palpation & inspection: normal inspection of the chest and normal palpation of entire chest wall Resp Effort & Inspection: normal respiratory effort Auscultation: Bilateral: Clear to Auscultation Cardio Palpation: normal PMI Rate: regular rate Rhythm: regular rhythm GI Inspection: normal to inspection Auscultation: normal bowel sounds Percussion: normal to percussion Palpation: no hepatosplenomegaly Skin General: no rashes or lesions noted Neuro General: patient alert Extrem General: normal to inspection Psych Affect: normal affect Quality Reporting Tobacco Screening ([facility] 138) Smoking Status: Never smoker Assessment and Plan Assessment and Plan (1) Mesenteric adenitis: Status: Acute Plan - Dr. Friedman Friend, DO: Typically we treat this diagnosis with steroids. Patient] for this will be his mother, be that she has lupus erythematosus. We will check him for lupus with JORDON and antidouble-stranded DNA. We will also check a ESR CRP. (2) Abdominal pain: Status: Acute Orders: Orders: CRP Today LDH Today Erythrocyte Sed Rate Today Angiotensin Convert Enzyme Today ANCA Today Celiac Disease Profile Today Immunoglobulin A Today Immunoglobulin E Today Immunoglobulin G Today Immunoglobulin M Today Miscellaneous Lab Procedure Today CORTISOL SERUM Today Plan - Dr. Friedman Friend, DO: I am not sure if his abdominal pain is secondary to his empty sella syndrome. I will check a serum cortisol level. We will also check him for other autoimmune diseases in particular celiac disease and if he is ANCA positive. I have re-examined the patient. There are no clinical changes since date of exam.
--- NOTE | 2021-09-20 09:45 | IMM_PTH ---
PATIENT: KENDRA CANTU LOC: [facility] U#:[id number] AGE/SX: 35/M ROOM: RE09/20/[address]: Dr. Elder Naylor DO : 1985 BED: DIS: 09/20/2021 SPEC #: [id number] RECD: 09/20/21 13:05 STATUS: DENA REQ #: [id number] HUMBERTO: 09/20/21 09:[address]: Elder Naylor DEPT: IMMUNOHISTOCHEMISTRY RECD BY: Comfort Pimentel ENTERED: 09/20/21 13:05 SP TYPE: IMMUNO OTHR DR: Dr. Isaac Ryan MD Tissues: B - Stomach, NOS Procedures: H Pylori (initial) PHYSICIAN & INSTITUTION [place] [id number] SPECIMEN INFORMATION: Tissue Source: B ? Gastric antrum biopsy Clinical Info: Mesenteric adenitis Specimen Number: [id number] CPT code: 21200 METHODOLOGY: Deparaffinized sections of prefer/formalin-fixed tissue or PAP/DQ stained slides are incubated with monoclonal/polyclonal antibodies/oligonucleotide probes. Localization is made via biotin free immunoperoxidase method. Appropriate controls are performed and reacted as expected. Results on target cell population are indicated in the following table: RESULTS: ANTIBODY / CLONE RESULT Block B H Pylori (polyclonal) negative These tests were developed and their performance characteristics determined by [facility]. They may not have been cleared or approved by the U.S. Food and Drug Administration. The FDA has determined that such clearance or approval is not necessary. INTERPRETATION: B. Gastric antrum, biopsy: Negative for Helicobacter pylori organisms. YO:rocio 09/24/2021
--- NOTE | 2021-09-20 09:45 | EGD_PTH ---
PATIENT: KENDRA CANTU LOC: EN U#:[id number] AGE/SX: 35/M ROOM: RE09/20/[address]: Dr. Elder Naylor DO : 1985 BED: DIS: 09/20/2021 SPEC #: [id number] RECD: 09/20/21 11:49 STATUS: DENA REDonnie #: [id number] HUMBERTO: 09/20/21 09:[address]: Elder Naylor DEPT: SURGICAL PATHOLOGY RECD BY: Emerald Valdez ENTERED: 09/20/21 12:50 SP TYPE: EGD BIOPSY OT DR: Dr. Isaac Ryan MD Tissues: A - Duodenum, NOS B - Gastric mucous membrane C - Esophagus, NOS D - Ileum, NOS E - COLON BIOPSY Procedures: Special Stain Group II Surgery Specimen Level IV Alcian Blue/PAS (control) HEADER OPERATION: Colonoscopy, EGD ([facility] [place]) PRE-OP DIAGNOSIS: Mesenteric adenitis TISSUE SUBMITTED: A ? Duodenum biopsy, B ? Gastric antrum for histo and H. pylori, C ? Distal esophagus biopsy, D ? Terminal ileum biopsy, E ? Random colon biopsy MICROSCOPIC DIAGNOSIS A. Duodenum biopsy: Fragments of duodenal mucosa with mild congestion and hemorrhage. B. Gastric antrum, biopsy: Mild gastritis. See microscopic description and comment. C. Distal esophagus, biopsy: Fragments of gastroesophageal mucosa with mild chronic inflammation. Intestinal metaplasia (goblet cell metaplasia) is not identified. D. Terminal ileum, biopsy: Fragments of small intestinal mucosa, no pathologic diagnosis. E. Colon, random biopsy: A fragment of hyperplastic polyp with focal acute inflammation. See comment. SJ:rocio 09/24/2021 COMMENT B. The results of immunohistochemistry for Helicobacter pylori will be reported separately ([id number]). C. Alcian blue/PAS stain with matched control is used in the evaluation of the specimen. E. Additional fragments of colonic mucosa do not show any significant pathologic abnormality. MICROSCOPIC DESCRIPTION Slides are reviewed. B. The specimen shows fragments of gastric mucosa with chronic inflammatory cell infiltrates in the lamina propria consisting of lymphocytes and plasma cells, consistent with mild chronic gastritis. GROSS DESCRIPTION A - Received in fixative is one container labeled with the patient's name and designated duodenum biopsy. The specimen consists of multiple irregular fragments of light calderón soft tissue that in aggregate measure 1 x 0.5 x 0.1 cm. The specimen is totally submitted in one cassette. B - Received in fixative is one container labeled with the patient's name and designated gastric antrum biopsy. The specimen consists of multiple irregular fragments of light calderón soft tissue that in aggregate measure 1 x 0.6 x 0.1 cm. The specimen is totally submitted in one cassette. C - Received in fixative is one container labeled with the patient's name and designated distal esophagus biopsy. The specimen consists of two irregular fragments of light calderón soft tissue that in aggregate measure 0.8 x 0.4 x 0.1 cm. The specimen is totally submitted in one cassette. D - Received in fixative is one container labeled with the patient's name and designated terminal ileum biopsy. The specimen consists of multiple irregular fragments of light calderón soft tissue that in aggregate measure 1.2 x 0.3 x 0.1 cm. The specimen is totally submitted in one cassette. E - Received in fixative is one container labeled with the patient's name and designated random colon biopsy. The specimen consists of multiple irregular fragments of light calderón soft tissue that in aggregate measure 2.5 x 1 x 0.1 cm. The specimen is totally submitted in one cassette. / SJ:rg 09/20/21 TC:3 CPT: 83193 x5, 76251
--- NOTE | 2021-09-20 10:00 | OP.EGD_ITS ---
Patient Name: Otoniel Walker Procedure Date: 09/20/2021 9:38 AM Date of : 1985 Age: 35 Procedure: Upper GI endoscopy Indications: Epigastric abdominal pain, Heartburn Providers: Elder Naylor DO Referring MD: Elder Naylor DO Medicines: See the Anesthesia note for documentation of the administered medications Patient Profile: This is a 35 year old male. Refer to note in patient chart for documentation of history and physical. Patient has symptoms of acute abdominal cramping, acute abdominal distention and chronic epigastric abdominal pain. Complications: No immediate complications. Procedure: Pre-Anesthesia Assessment: - Prior to the procedure, a History and Physical was performed, and patient medications and allergies were reviewed. The risks and benefits of the procedure and the sedation options and risks were discussed with the patient. All questions were answered and informed consent was obtained. Patient identification and proposed procedure were verified by the physician in the pre-procedure area. Mental Status Examination: alert and oriented. Airway Examination: normal oropharyngeal airway and neck mobility. Respiratory Examination: clear to auscultation. CV Examination: normal. Prophylactic Antibiotics: The patient does not require prophylactic antibiotics. Prior Anticoagulants: The patient has taken no previous anticoagulant or antiplatelet agents. After reviewing the risks and benefits, the patient was deemed in satisfactory condition to undergo the procedure. The anesthesia plan was to use moderate sedation / analgesia (conscious sedation). Immediately prior to administration of medications, the patient was re-assessed for adequacy to receive sedatives. The heart rate, respiratory rate, oxygen saturations, blood pressure, adequacy of pulmonary ventilation, and response to care were monitored throughout the procedure. The physical status of the patient was re-assessed after the procedure. After obtaining informed consent, the endoscope was passed under direct vision. Throughout the procedure, the patient's blood pressure, pulse, and oxygen saturations were monitored continuously. The gastroscope was introduced through the mouth, and advanced to the second part of duodenum. The upper GI endoscopy was accomplished without difficulty. The patient tolerated the procedure well. Moderate Sedation: Moderate (conscious) sedation was administered by the endoscopy nurse and supervised by the endoscopist. The patient's oxygen saturation, heart rate, blood pressure and response to care were monitored. Total physician intraservice time was 15 minutes. Scope In: 9:48:52 AM Scope Out: 9:54:56 AM Total Procedure Duration Time 0 hours 6 minutes 4 seconds Findings: LA Grade A (one or more mucosal breaks less than 5 mm, not extending between tops of 2 mucosal folds) esophagitis with no bleeding was found 34 to 35 cm from the incisors. Biopsies were taken with a cold forceps for histology. Verification of patient identification for the specimen was done. Estimated blood loss was minimal. Patchy mildly erythematous mucosa without bleeding was found in the stomach. This was biopsied with a cold forceps for histology. Verification of patient identification for the specimen was done. Estimated blood loss was minimal. Patchy mildly erythematous mucosa without active bleeding and with no stigmata of bleeding was found in the first portion of the duodenum. This was biopsied with a cold forceps for histology. Verification of patient identification for the specimen was done. Estimated blood loss was minimal. Impression: - LA Grade A reflux esophagitis. Biopsied. - Erythematous mucosa in the stomach. Biopsied. Recommendation: - Discharge patient to home. - Resume previous diet. - Continue present medications. - Await pathology results. - Repeat upper endoscopy in 1 year for surveillance based on pathology results. - Return to GI office in 2 weeks. Procedure Code(s): --- Professional --- 97073, Esophagogastroduodenoscopy, flexible, transoral; with biopsy, single or multiple 92622, 59, Moderate sedation services provided by the same physician or other qualified health care management associate performing the diagnostic or therapeutic service that the sedation supports, requiring the presence of an independent trained observer to assist in the monitoring of the patient's level of consciousness and physiological status; initial 15 minutes of intraservice time, patient age 5 years or older CPT copyright 2017 [employer]. All rights reserved. The codes documented in this report are preliminary and upon refined syrup operator review may be revised to meet current compliance requirements. Elder Naylor DO 09/20/2021 10:00:07 AM This report has been signed electronically. Number of Addenda: 1 Note Initiated On: 09/20/2021 9:38 AM Addendum Number: 1 Addendum Date: 05/29/2022 7:30:48 AM MAC was used instead of moderate sedation for the patient. Elder Naylor DO 05/29/2022 7:30:54 AM This report has been signed electronically.
--- NOTE | 2021-09-20 10:01 | OP.CCLET_ITS ---
05/29/2022 Isaac Ryan [address] [place] [address] Re : Upper GI endoscopy procedure for Otoniel Turnergos Dear Dr. Ryan This procedure was performed on August. My impressions and recommendations are as follows: Impressions : - LA Grade A reflux esophagitis. Biopsied. - Erythematous mucosa in the stomach. Biopsied. Recommendations : - Discharge patient to home. - Resume previous diet. - Continue present medications. - Await pathology results. - Repeat upper endoscopy in 1 year for surveillance based on pathology results. - Return to GI office in 2 weeks. My findings are described in the full procedure note, which is enclosed. If I can be of further assistance, please feel free to contact me at . Sincerely, Elder Friend, 09/20/2021 10:00:07 AM This report has been signed electronically.
--- NOTE | 2021-09-20 10:28 | OP.COLON_ITS ---
Patient Name: Otoniel Walker Procedure Date: 09/20/2021 9:57 AM Date of : 1985 Age: 35 Procedure: Colonoscopy Indications: Chronic diarrhea Providers: Elder Naylor DO Referring MD: Elder Naylor DO Medicines: See the Anesthesia note for documentation of the administered medications Patient Profile: This is a 35 year old male. Refer to note in patient chart for documentation of history and physical. Patient has symptoms of acute abdominal cramping, acute abdominal distention and chronic epigastric abdominal pain. Last Colonoscopy: none. The patient's first colonoscopy is today. Complications: No immediate complications. Procedure: Pre-Anesthesia Assessment: - Prior to the procedure, a History and Physical was performed, and patient medications and allergies were reviewed. The risks and benefits of the procedure and the sedation options and risks were discussed with the patient. All questions were answered and informed consent was obtained. Patient identification and proposed procedure were verified by the physician in the pre-procedure area. Mental Status Examination: alert and oriented. Airway Examination: normal oropharyngeal airway and neck mobility. Respiratory Examination: clear to auscultation. CV Examination: normal. Prophylactic Antibiotics: The patient does not require prophylactic antibiotics. Prior Anticoagulants: The patient has taken no previous anticoagulant or antiplatelet agents. After reviewing the risks and benefits, the patient was deemed in satisfactory condition to undergo the procedure. The anesthesia plan was to use moderate sedation / analgesia (conscious sedation). Immediately prior to administration of medications, the patient was re-assessed for adequacy to receive sedatives. The heart rate, respiratory rate, oxygen saturations, blood pressure, adequacy of pulmonary ventilation, and response to care were monitored throughout the procedure. The physical status of the patient was re-assessed after the procedure. After I obtained informed consent, the scope was passed under direct vision. Throughout the procedure, the patient's blood pressure, pulse, and oxygen saturations were monitored continuously. The Colonoscope was introduced through the anus and advanced to the terminal ileum. The colonoscopy was performed without difficulty. The patient tolerated the procedure well. The quality of the bowel preparation was good. Moderate Sedation: Moderate (conscious) sedation was administered by the endoscopy nurse and supervised by the endoscopist. The patient's oxygen saturation, heart rate, blood pressure and response to care were monitored. Total physician intraservice time was 15 minutes. Scope In: 10:03:35 AM Scope Withdrawal Time 0 hours 13 minutes 53 seconds Scope Out: 10:23:07 AM Total Procedure Duration Time 0 hours 19 minutes 32 seconds Findings: The perianal and digital rectal examinations were normal. An area of mildly congested mucosa was found in the recto-sigmoid colon. Biopsies were taken with a cold forceps for histology. Verification of patient identification for the specimen was done. Estimated blood loss was minimal. The terminal ileum appeared normal. Biopsies were taken with a cold forceps for histology. Estimated blood loss was minimal. Impression: - Congested mucosa in the recto-sigmoid colon. Biopsied. - The examined portion of the ileum was normal. Biopsied. Recommendation: - Discharge patient to home. - Resume previous diet. - Continue present medications. - Await pathology results. - Repeat colonoscopy in 5 years for surveillance based on pathology results. - Return to GI office in 2 weeks. Procedure Code(s): --- Professional --- 12645, Colonoscopy, flexible; with biopsy, single or multiple 38923, 59, Moderate sedation services provided by the same physician or other qualified health care mgr performing the diagnostic or therapeutic service that the sedation supports, requiring the presence of an independent trained observer to assist in the monitoring of the patient's level of consciousness and physiological status; initial 15 minutes of intraservice time, patient age 5 years or older CPT copyright 2017 [employer]. All rights reserved. The codes documented in this report are preliminary and upon analysis lead review may be revised to meet current compliance requirements. Elder Naylor DO 09/20/2021 10:28:08 AM This report has been signed electronically. Number of Addenda: 1 Note Initiated On: 09/20/2021 9:57 AM Addendum Number: 1 Addendum Date: 05/29/2022 7:31:03 AM MAC was used instead of moderate sedation for the patient. Elder Naylor DO 05/29/2022 7:31:08 AM This report has been signed electronically.
--- NOTE | 2021-09-20 10:29 | OP.CCLET_ITS ---
05/29/2022 Isaac Ryan [address] [place] [address] Re : Colonoscopy procedure for Otoniel Walker Dear Dr. Ryan This procedure was performed on August. My impressions and recommendations are as follows: Impressions : - Congested mucosa in the recto-sigmoid colon. Biopsied. - The examined portion of the ileum was normal. Biopsied. Recommendations : - Discharge patient to home. - Resume previous diet. - Continue present medications. - Await pathology results. - Repeat colonoscopy in 5 years for surveillance based on pathology results. - Return to GI office in 2 weeks. My findings are described in the full procedure note, which is enclosed. If I can be of further assistance, please feel free to contact me at . Sincerely, Elder Naylor, 09/20/2021 10:28:08 AM This report has been signed electronically.
== END 2021-09-20 11:13 ==
LOC: EN 08:48 → AC 08:48
PROVIDERS: PCP Family Medicine; Referring Provider Internal Medicine Gastroenterology; Visit Provider Internal Medicine Gastroenterology
PROC: 0DJD8ZZ Inspection of Lower Intestinal Tract, Via Natural or Artificial Opening Endoscopic (ICD-10-PCS; CPT 45378; principal; 2021-09-20 09:40)
DX: K29.70 Gastritis, unspecified, without bleeding (principal); R19.7 Diarrhea, unspecified; I88.0 Nonspecific mesenteric lymphadenitis; K21.00 Gastro-esophageal reflux disease with esophagitis, without bleeding; R10.13 Epigastric pain
CPT/HCPCS: 43239; 45380; 87426; 88305; 88313; 88342; J7120; J2405

== ENCOUNTER 2021-09-25 12:10 | Outpatient (CLI) | payer OTHER, SELFPAY ==
[2021-09-27 15:09] LABS: Endomysial Antibody IgA Negative (Negative)
[2021-09-28 14:07] LABS: Immunoglobulin A 396 mg/dL (90-386); t-Transglutaminase IgA <2 U/mL (0-3)
[2021-09-29 10:04] LABS: H. PYLORI STOOL AG Negative (Negative)
== END 2021-09-25 23:59 | disposition short-term general hospital (02) ==
LOC: LAB 12:13
PROVIDERS: PCP Family Medicine; Visit Provider Internal Medicine Gastroenterology
DX: K29.60 Other gastritis without bleeding (principal)
CPT/HCPCS: 36415; 82784; 83516; 86255

== ENCOUNTER 2021-11-02 08:05 | Emergency (ER) | payer OTHER, SELFPAY ==
[2021-11-02 08:06] VITALS: BP 105/69; PULSE 58; RESP 16; TEMP 36.4; O2SAT 100; BMI 32.6
--- NOTE | 2021-11-02 08:13 | RAD_ITS ---
STUDY: X-RAY CHEST REASON FOR EXAM: Male, 35 years old. Chest pain TECHNIQUE: Single AP portable view of the chest. COMPARISON: Comparison is made with prior study dated 05/29/2021. FINDINGS: EKG electrodes are seen. The lungs are clear and expanded. There is no demonstrated pleural abnormality. Normal size heart. Normal mediastinum and danii. Normal visualized pulmonary arteries. Normal visualized aortic arch and descending thoracic aorta. Normal visualized thoracic spine. Normal visualized ribs, clavicles, and shoulders. There is no demonstrated abnormality of the visualized soft tissue structures of the upper abdomen. RAD/Chest 1 View (Portable) IMPRESSION: Normal x-ray examination of the chest. Electronically Signed: Gerber Sherwood MD at 8:47 EST ,
--- NOTE | 2021-11-02 08:13 | EKG12_ITS ---
Test Reason : CP Blood Pressure : / mmHG Vent. Rate : 060 BPM Atrial Rate : 060 BPM P-R Int : 184 ms QRS Dur : 080 ms QT Int : 424 ms P-R-T Axes : 000 -21 001 degrees QTc Int : 424 ms Normal sinus rhythm Normal ECG Confirmed by AFRICA BANKS, TAWANNA ([id number]), design editor ARSH GUZMAN ([id number]) on 11/06/2021 6:55:52 AM Referred By: BRITTANI Confirmed By:TAWANNA LEGER MD
--- NOTE | 2021-11-02 08:14 | EDS_ITS ---
HPI History of Present Illness Chief Complaint: Chest Pain Narrative Narrative: Patient who denies significant past medical history presents with left-sided chest pain and lightheadedness that began at 715 this morning, approximately an hour ago. He states that yesterday everything was fine. He awoke this morning at 715 to go to school, and felt very lightheaded. It is worse with standing. He became slightly nauseated but did not vomit. He states he felt sweaty and his told him that he looked pale. He felt his heart racing. He describes left-sided chest pain that is nonradiating. No other symptoms. No pedal edema. No DVT or PE risk factors. 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 Yesterday was a normal day for him. He usually works out/performs martial arts twice a week. The last time was the day before yesterday. He states he feels very lightheaded when he attempts to stand. No headache. He denies fevers or chills. No other symptoms. PFSH [facility] Medical History Abdominal pain Anxiety Depression Dietary restriction Diverticulosis Empty sella Former smoker Gastritis History of diverticulitis History of IBS History of stress test Hypertriglyceridemia Injury of head and neck Mesenteric adenitis Mesenteric adenitis Orchitis Spasm of bowel Tinea corporis Wears glasses Home Medications pantoprazole 40 mg tablet,delayed release 40 mg PO DAILY #60 tab 09/24/21 [Rx Last Taken Unknown] sucralfate 100 mg/mL oral suspension 10 ml PO QAC #1000 ml 09/24/21 [Rx Last Taken Unknown] meclizine 25 mg PO TID PRN #14 tab 11/02/21 [Rx Last Taken Unknown] Allergy/AdvReac Type Severity Reaction Status Date / Time No Known Allergies Allergy Verified 11/02/21 08:05 Surgical History History of cholecystectomy History of testicular surgery Social History Smoking Status: Former smoker ROS ROS ED ROS Narrative Constitutional: No fever, no chills. HEENT: No sore throat. No neck pain. No loss of vision. No rhinorrhea. Cardiovascular: Left-sided chest pain. Positive palpitations. No pedal edema. Respiratory: No cough, no shortness of breath. Abdominal: No abdominal pain. No nausea. No vomiting. Genitourinary: No dysuria. No hematuria. Musculoskeletal: No myalgias. No arthralgias. Neurologic: No headaches. No dizziness or vertiginous symptoms. Positive lightheadedness. Skin: No rash. No change in color, although told him he looked pale. Psychiatric: No depression. No anxiety. EXAM Physical Exam Narrative Exam Narrative: Afebrile. Vital signs noted. HEENT: Normocephalic. Atraumatic. PERRL, EOMI. Neck soft and supple. No point tenderness or step off. Cardiovascular: Regular rate and rhythm with intermittent bradycardia. No murmurs, rubs, or gallops appreciated. Respiratory: No tachypnea. Lungs clear to auscultation bilaterally. Gastrointestinal: Abdomen soft, nontender, with normoactive bowel sounds. No rebound or guarding. Neurological: Awake. Alert. Nonfocal, nonlateralizing. Skin: No rash. Normal color. No pallor. Musculoskeletal: No pedal edema. Full range of motion extremities. Const Vital Signs: 11/02/21 08:06 11/02/21 08:08 11/02/21 08:31 Temperature 97.6 F L Temperature Source Oral Pulse Rate 58 L Pulse Rate [Lying] Pulse Rate [Sitting] Pulse Rate [Standing] Respiratory Rate 16 Respiratory Effort Normal Non-Labored Blood Pressure 105/69 Blood Pressure [Lying] Blood Pressure [Sitting] Blood Pressure [Standing] Blood Pressure Mean 81 Blood Pressure Mean [Lying] Blood Pressure Mean [Sitting] Blood Pressure Mean [Standing] Pulse Ox 100 97 Oxygen Delivery Method Room Air Room Air 11/02/21 09:38 11/02/21 10:07 11/02/21 11:00 Temperature Temperature Source Pulse Rate 67 62 Pulse Rate [Lying] 73 Pulse Rate [Sitting] 77 Pulse Rate [Standing] 66 Respiratory Rate 18 16 Respiratory Effort Blood Pressure 103/75 102/66 Blood Pressure [Lying] 114/69 Blood Pressure [Sitting] 119/81 H Blood Pressure [Standing] 124/80 H Blood Pressure Mean 84 78 Blood Pressure Mean [Lying] 84 Blood Pressure Mean [Sitting] 93 Blood Pressure Mean [Standing] 94 Pulse Ox 99 99 Oxygen Delivery Method Room Air Room Air Heart Score History: Slightly/Non-Suspicious Score: 0 MDM MDM MDM Narrative Medical decision making narrative: Chest pain work-up was pursued along with orthostatics. He was bolused normal saline 1 L intravenously and administered aspirin. EKG demonstrates normal sinus rhythm at 60 bpm without ectopy or acute ST changes. CBC is grossly normal, stable hemoglobin of 16.4. Electrolyte panel was grossly unremarkable. Initial troponin negative at 4. Repeat also negative at 4. Chest x-ray shows normal examination of the chest. Orthostatics reported by RN is negative. He was bolused normal saline and states he has minimal improvement. While initially he did not describe any vertiginous type symptoms, his is at the bedside stating that he got up to use the urinal and was dizzy. He has had problems with vertigo in the past for which he took meclizine. He was given a meclizine tablet here in the emergency department and a prescription written for 14 tablets. At this point in time, given his negative work-up I feel he can be discharged safely home with follow-up to her primary care physician. Return instructions to the emergency department were reviewed. Disposition is discharged home in stable condition. Lab Data Labs: Laboratory Results - last 24 hr 11/02/21 11/02/21 11/02/21 08:10 08:10 10:18 WBC 6.3 RBC 5.38 Hgb 16.4 Hct 45.8 MCV 85.1 MCH 30.5 MCHC 35.8 RDW Std Deviation 37.0 RDW Coeff of Cassandra 12.0 Plt Count 206 MPV 10.4 Immature Gran % (Auto) 1.300 H Neut % (Auto) 51.4 Lymph % (Auto) 37.1 [place] % (Auto) 8.8 Eos % (Auto) 0.9 Baso % (Auto) 0.5 Absolute Neuts (auto) 3.3 Absolute Lymphs (auto) 2.35 Nucleated RBC % 0 Sodium 137 Potassium 3.5 Chloride 103 Carbon Dioxide 26.0 Anion Gap 8 BUN 16 Creatinine 1.12 Estim Creat Clear Calc 74.79 Est GFR (MDRD) Af Amer 96 Est GFR (MDRD) Non-Af 79 BUN/Creatinine Ratio 14.3 Glucose 187 H Calcium 8.9 Troponin I High Sens 4 4 Radiography Diagnostic Testing: Clinical Impression(s) from Imaging Studies Chest X-Ray 11/02/21 08:13 IMPRESSION: Normal x-ray examination of the chest. Electronically Signed: Gerber Sherwood MD at 8:47 EST , Discharge Plan Triage Chief Complaint: Chest Pain ED Provider: Lalit Fernandes Dx/Rx/DC Orders Clinical Impression: Chest pain, Lightheadedness, Dizziness Instructions: ED Chest Pain, Uncertain Cause, ED Dizziness, Uncertain Cause Prescriptions: New meclizine 25 mg tablet 25 mg PO TID PRN (Reason: dizziness) Qty: 14 RF: 0 No Action sucralfate [Carafate] 100 mg/mL suspension 10 ml PO QAC Qty: 1000 RF: 0 pantoprazole [Protonix] 40 mg tablet,delayed release (DR/EC) 40 mg PO DAILY Qty: 60 RF: 2 Primary Care Provider: Isaac Ryan Referrals: Isaac Ryan MD [Primary Care Provider] - Disposition Disposition: Home, Self Care
[2021-11-02 08:30] LABS: Absolute Lymphocyte Count 2.35 X10^3/uL (0.83-4.51); Absolute Neutrophil Count 3.3 X10^3/uL (2.0-7.7); Basophil# 0.03 X10^3/uL; Basophil% 0.5 % (0-1); Eosinophil# 0.06 X10^3/uL; Eosinophils% 0.9 % (0-5); Hematocrit 45.8 % (40-54); Hemoglobin 16.4 g/dL (13.0-16.5); Lymphocyte # 2.35 X10^3/ul (0.83-4.51); Lymphocyte % 37.1 % (19-41); Mean Corp Hgb Conc 35.8 g/dL (32-36); Mean Corpuscular Hgb 30.5 pg (27.0-32.0); Mean Corpuscular Volume 85.1 fL (80-94); Mean Platelet Vol. 10.4 fl (6.2-12.0); Monocyte# 0.56 X10^3/uL; Monocyte% 8.8 % (0-10); NRBC Flagged by Analyzer 0 % (0-5); Neutrophil # 3.26 X10^3/uL (2.7-7.7); Neutrophil % 51.4 % (47-70); Platelet Count 206 K/mm3 (150-450); Red Blood Count 5.38 M/mm3 (4.6-6.2); White Blood Count 6.3 K/mm3 (4.4-11.0)
[2021-11-02] MEDS: 0.9% Normal Saline 1,000 ML 1000 ML IV (08:30)
[2021-11-02] MEDS: Aspirin 81 MG TAB.CHEW 324 MG PO (08:30)
[2021-11-02 08:31] VITALS: O2SAT 97
[2021-11-02 08:48] LABS: Anion Gap 8 (5-15); BUN 16 mg/dL (7-18); BUN/Creat Ratio 14.3 RATIO (10-20); Calcium,Total 8.9 mg/dL (8.5-10.1); Chloride 103 mmol/L (98-107); Creatinine, Serum 1.12 mg/dL (0.70-1.30); EST Glomerular Filtration Rate 79 mL/min (>60); Est Glom Filt Rate - Afr Amer 96 mL/min (>60); Estimated Creatinine Clearance 74.79 ml/min; Glucose 187 mg/dL (74-106); Potassium 3.5 mmol/L (3.5-5.1); Sodium Level 137 mmol/L (136-145); Troponin-I HS 4 pg/mL (3.0-78.0)
[2021-11-02 09:38] VITALS: BP 114/69; BP 119/81; BP 124/80; PULSE 66; PULSE 73; PULSE 77
[2021-11-02 10:07] VITALS: BP 103/75; PULSE 67; RESP 18; O2SAT 99
[2021-11-02] MEDS: 0.9% Normal Saline 1,000 ML 999 ML IV (10:15)
[2021-11-02] MEDS: Ondansetron 4 MG/2 ML Vial IV (10:15)
[2021-11-02 10:59] LABS: Troponin-I HS 4 pg/mL (3.0-78.0)
[2021-11-02 11:00] VITALS: BP 102/66; PULSE 62; RESP 16; O2SAT 99
[2021-11-02] MEDS: Meclizine HCl 25 MG Tablet PO (12:03)
[2021-11-02 12:04] VITALS: BP 140/71; PULSE 84; RESP 20; O2SAT 98
== END 2021-11-02 12:08 | disposition home or self-care (01) ==
PROVIDERS: Emergency Provider Emergency Medicine; PCP Family Medicine; Visit Provider Emergency Medicine
DX: R07.9 Chest pain, unspecified (principal); R11.0 Nausea; R42 Dizziness and giddiness; Z87.891 Personal history of nicotine dependence
CPT/HCPCS: 71045; 80048; 84484; 85025; 93005; 96361; 96374; 99285; J7030; A4216; J2405

== ENCOUNTER 2022-01-09 10:00 | Outpatient (CLI) | payer OTHER, SELFPAY ==
[2022-01-09 10:54] LABS: Erythrocyte Sedimentation Rate 3 mm/hr (0-20)
[2022-01-09 11:02] LABS: CRP 5.64 mg/L (0.0-3.0); Magnesium 2.5 mg/dL (1.6-2.6)
[2022-01-11 08:11] LABS: Insulin Like Growth Factor 165 ng/mL (95-290)
== END 2022-01-09 23:59 | disposition home or self-care (01) ==
PROVIDERS: PCP Family Medicine; Referring Provider Physical Medicine & Rehabilitation; Visit Provider Physical Medicine & Rehabilitation
DX: M79.7 Fibromyalgia (principal)
CPT/HCPCS: 36415; 83735; 84305; 85652; 86140

== ENCOUNTER 2023-05-12 11:16 | Emergency (ER) | payer OTHER, SELFPAY ==
[2023-05-12 11:17] VITALS: BP 120/83; PULSE 66; RESP 18; TEMP 36.5; O2SAT 98; BMI 31.8
[2023-05-12] MEDS: Ketorolac 30 MG/ML Syringe IV (11:48)
[2023-05-12] MEDS: 0.9% Normal Saline 1,000 ML 1000 ML IV (11:48)
[2023-05-12 11:50] LABS: Absolute Lymphocyte Count 1.84 X10^3/uL (0.83-4.51); Basophil# 0.02 X10^3/uL; Basophil% 0.4 % (0-1); Eosinophil# 0.05 X10^3/uL; Eosinophils% 0.9 % (0-5); Hematocrit 48.3 % (40-54); Hemoglobin 16.9 g/dL (13.0-16.5); Lymphocyte # 1.84 X10^3/ul (0.83-4.51); Lymphocyte % 34.4 % (19-41); Mean Corpuscular Hgb 29.6 pg (27.0-32.0); Mean Corpuscular Volume 84.7 fL (80-94); Mean Platelet Vol. 10.2 fl (6.2-12.0); Monocyte% 7.5 % (0-10); NRBC Flagged by Analyzer 0 % (0-5); Neutrophil # 3.03 X10^3/uL (2.7-7.7); Neutrophil % 56.6 % (47-70); Platelet Count 178 K/mm3 (150-450); RBC Distribution Width CV 11.9 % (11.6-14.6); RBC Distribution Width SD 36.4 fl (35.1-43.9); White Blood Count 5.4 K/mm3 (4.4-11.0)
--- NOTE | 2023-05-12 11:50 | RAD_ITS ---
INDICATION: Injury/Pain EXAMINATION/TECHNIQUE: X-RAY - RIGHT XR Shoulder Min 2 Views 4 VIEWS COMPARISON: Prior study dated: Chest radiograph dated November 02, 2021 FINDINGS: SOFT TISSUES: No soft tissue swelling or gas. No radiopaque foreign body. BONES/JOINTS: No acute fracture or subluxation.. Normal alignment. Preservation of the joint space.. No sclerotic or destructive changes observed. RAD/Shoulder min 2 Views IMPRESSION: No acute osseous injury. Electronically Signed: Christina Saleem MD at 12:03 EDT ,
[2023-05-12 11:56] LABS: Anion Gap 5 (5-15); BUN 19 mg/dL (7-18); BUN/Creat Ratio 17.4 RATIO (10-20); Calcium,Total 9.3 mg/dL (8.5-10.1); Chloride 106 mmol/L (98-107); Creatinine, Serum 1.09 mg/dL (0.70-1.30); EST Glomerular Filtration Rate 81 mL/min (>60); Est Glom Filt Rate - Afr Amer 98 mL/min (>60); Glucose 129 mg/dL (74-106); Potassium 3.9 mmol/L (3.5-5.1); Sodium Level 136 mmol/L (136-145)
--- NOTE | 2023-05-12 12:43 | EX.ED.DYSGE1 ---
HPI History of Present Illness Chief Complaint: General Illness Informant: patient Onset/Context/Timing Onset: Days Context: Gradual Onset Timing: Continuous Quality: Aching, burning, sharp Location: Back, neck, and right shoulder Worsened by: Movement Relieved by: Nothing Narrative Narrative: Patient presents with a flareup of his fibromyalgia that has been getting worse over the past few days. Patient states he has aching, burning, and sharp pain on his back and right shoulder. Patient states it is worse with any movement. Patient states the pain radiates into his hands. Patient denies any trauma or injury. Patient denies any fevers or chills. Patient does admit to a decreased appetite but denies any nausea or vomiting. [facility] Medical History Abdominal pain Anxiety Depression Dietary restriction Diverticulosis Empty sella Former smoker Gastritis History of diverticulitis History of IBS History of stress test Hypertriglyceridemia Injury of head and neck Mesenteric adenitis Mesenteric adenitis Orchitis Spasm of bowel Tinea corporis Wears glasses Home Medications pantoprazole 40 mg tablet,delayed release (Protonix) 40 mg PO DAILY #60 tabs 09/24/21 [Rx Last Taken Unknown] sucralfate 100 mg/mL oral suspension (Carafate) 10 ml PO QAC #1,000 mL 09/24/21 [Rx Last Taken Unknown] meclizine 25 mg tablet 25 mg PO TID PRN dizziness #14 tabs 11/02/21 [Rx Last Taken Unknown] Allergy/AdvReac Type Severity Reaction Status Date / Time No Known Allergies Allergy Verified 05/12/23 11:17 Surgical History History of cholecystectomy History of testicular surgery Social History Smoking Status: Former smoker ROS ROS ED Constitutional Constitutional ED: Denies chills or fever(s) Eyes Eyes: Denies blurry vision or change in vision ENT ENT ED: Denies rhinorrhea or sore throat Cardiovascular Cardiovascular: Denies chest pain or palpitations Respiratory/Chest Respiratory/Chest: Denies cough or dyspnea Gastrointestinal Gastrointestinal: Denies nausea or vomiting Genitourinary Genitourinary ED: Denies dysuria or hematuria Musculoskeletal Musculoskeletal: Reports back pain, myalgias and neck pain Integumentary Denies abscess or rash Neurologic Neurologic: Denies headache(s) or weakness Allergic/Immunologic Allergic/Immunologic ED: Denies mouth swelling or urticaria EXAM Physical Exam Const Vital Signs: 05/12/23 11:17 05/12/23 11:49 Temperature 97.7 F L Temperature Source Temporal Pulse Rate 66 Respiratory Rate 18 Respiratory Effort Normal Non-Labored Respiratory Pattern Normal Blood Pressure 120/83 H Blood Pressure Mean 95 Pulse Ox 98 Oxygen Delivery Method Room Air Positive well nourished and well developed General Appearance ED: well developed HEENT Reports moist mucous membranes Neck supple and no JVD Resp normal respiratory effort and clear to auscultation bilaterally Cardio regular rate, regular rhythm and no murmurs GI normal to inspection, nondistended, normoactive bowel sounds and non-tender Palpation: soft Extremity normal to inspection Extremity Narrative: There is mild tenderness over the anterior aspect of the right shoulder. There is no obvious deformity noted. There is good range of motion. Strength is 5/5 bilaterally in the upper extremities. There are no sensory deficits noted. Radial pulses are equal bilaterally. General Extremety ED: Negative for edema or tenderness General Extremity: Negative for edema Neuro oriented x3, CN's II-XII intact bilaterally and no sensory deficits noted Sensorium / Orientation: alert Motor Exam: strength 5/5 throughout Psych mental status grossly normal Skin no rashes or lesions noted MDM MDM MDM Narrative Medical decision making narrative: Differential diagnosis includes fibromyalgia, viral illness, muscular strain, dehydration, electrolyte abnormality, and anemia. CBC will be obtained to assess for leukocytosis and anemia. Basic metabolic profile will be obtained to assess for electrolyte abnormality and renal function. X-rays of the right shoulder will be obtained to assess for degenerative changes and occult fracture. Lab Data Attestation: I reviewed the patient's lab results. Lab results narrative: CBC was reviewed and was within normal limits. Basic metabolic profile was reviewed and was within normal limits. Labs: Laboratory Results - last 24 hr 05/12/23 11:37 WBC 5.4 RBC 5.70 Hgb 16.9 H Hct 48.3 MCV 84.7 MCH 29.6 MCHC 35.0 RDW Std Deviation 36.4 RDW Coeff of Cassandra 11.9 Plt Count 178 MPV 10.2 Immature Gran % (Auto) 0.200 Neut % (Auto) 56.6 Lymph % (Auto) 34.4 [place] % (Auto) 7.5 Eos % (Auto) 0.9 Baso % (Auto) 0.4 Absolute Neuts (auto) 3.0 Absolute Lymphs (auto) 1.84 Nucleated RBC % 0 Sodium 136 Potassium 3.9 Chloride 106 Carbon Dioxide 25.0 Anion Gap 5 BUN 19 H Creatinine 1.09 Estim Creat Clear Calc 75.40 Est GFR (MDRD) Af Amer 98 Est GFR (MDRD) Non-Af 81 BUN/Creatinine Ratio 17.4 Glucose 129 H Calcium 9.3 Radiography Diagnostic Testing: Clinical Impression(s) from Imaging Studies Shoulder X-Ray 05/12/23 11:50 IMPRESSION: No acute osseous injury. Electronically Signed: Christina Saleem MD at 12:03 EDT , X-rays of the right shoulder were obtained. There are 4 views. On my independent interpretation, there is no acute fracture or dislocation. There are no degenerative changes noted. Radiologist also interpreted the x-rays and agrees. Treatment and Re-Evaluation :: Patient was given IV fluids and Toradol here. Patient is feeling better on reevaluation. Patient was advised of his findings. Patient was instructed to drink plenty of fluids. Patient was instructed to take Tylenol or ibuprofen as needed for pain. Patient was instructed to follow-up with his primary care physician in 5 to 7 days. Patient understood and was agreeable with the plan. All questions were answered. Discharge Plan Triage Chief Complaint: General Illness ED Provider: Raymundo Hansen Dx/Rx/DC Orders Clinical Impression: Fibromyalgia, Right shoulder strain Instructions: ED Muscle Strain, Extremity, ED Fibromyalgia Prescriptions: No Action meclizine 25 mg tablet 25 mg PO TID PRN (Reason: dizziness) Qty: 14 0RF sucralfate [Carafate] 100 mg/mL suspension 10 ml PO QAC Qty: 1000 0RF Rx Instructions: Take three times a day, one hour before meals on an empty stomach for thirty days. pantoprazole [Protonix] 40 mg tablet,delayed release (DR/EC) 40 mg PO DAILY Qty: 60 2RF Rx Instructions: Take two times a day for eight weeks then once a day for eight weeks then stop. Primary Care Provider: Isaac Ryan Referrals: Isaac Ryan MD [Primary Care Provider] - 5-7 Days Disposition Disposition: Home, Self Care
== END 2023-05-12 13:32 | disposition home or self-care (01) ==
PROVIDERS: Emergency Provider Emergency Medicine; PCP Family Medicine; Visit Provider Emergency Medicine
DX: M79.7 Fibromyalgia (principal); S46.911A Strain of unspecified muscle, fascia and tendon at shoulder and upper arm level, right arm, initial encounter; Z87.891 Personal history of nicotine dependence; Z90.49 Acquired absence of other specified parts of digestive tract; X58.XXXA Exposure to other specified factors, initial encounter
CPT/HCPCS: 73030; 80048; 85025; 96361; 96374; 99283; J7030; A4216

== ENCOUNTER 2024-03-30 13:43 | Emergency (ER) | payer OTHER, SELFPAY ==
[2024-03-30 13:44] VITALS: BP 115/83; PULSE 70; RESP 18; TEMP 36.7; O2SAT 98; BMI 30.4
--- NOTE | 2024-03-30 16:33 | CT_ITS ---
STUDY: CT ABDOMEN AND PELVIS WITH CONTRAST REASON FOR EXAM: Male, 38 years old. abd pain RADIATION DOSAGE (If Supplied By Facility): CTDIvol = ( 14.93 ) mGy, DLP = ( 854.67 ) mGycm TECHNIQUE: Transaxial images were obtained from the dome of the diaphragm to the symphysis pubis without oral contrast. IV 100mL Isovue-370 was administered. Sagittal and coronal images were reconstructed. Individualized dose optimization techniques were used for this CT. COMPARISON: July 03, 2021 FINDINGS: The visualized lung bases are unremarkable. The visualized portions of the heart are within normal limits. Nonspecific fatty infiltrated liver without mass or bile duct dilatation.. Gallbladder has been removed surgically.. Normal spleen. Normal pancreas. Normal bilateral adrenal glands. Normal right kidney. Normal left kidney. Normal visualized stomach. There is no evidence for small bowel obstruction however there does appear to be some very mild thickening of folds of the duodenum and some of the loops of proximal small bowel possibly representing mild enteritis.. Normal colon. The appendix is visualized and appears normal. Normal abdominal aorta. Normal inferior vena cava. Normal retroperitoneum. Normal urinary bladder. Normal abdominal wall. Normal osseous structures. CT/Abdomen/Pelvis W IV Cont ONLY IMPRESSION: Findings which may be consistent with mild nonspecific enteritis. Clinical correlation recommended in this regard No evidence for small bowel obstruction or other acute abnormality status post cholecystectomy Electronically Signed: Manas Viramontes MD at 17:52 EDT ,
--- NOTE | 2024-03-30 16:33 | EKG12_ITS ---
Test Reason : Blood Pressure : / mmHG Vent. Rate : 057 BPM Atrial Rate : 057 BPM P-R Int : 180 ms QRS Dur : 086 ms QT Int : 428 ms P-R-T Axes : -14 -19 -07 degrees QTc Int : 416 ms Sinus bradycardia with sinus arrhythmia Minimal voltage criteria for LVH, may be normal variant ( R in aVL ) Borderline ECG Confirmed by Hubert Zelaya ([id number]), news editor ARSH GUZMAN ([id number]) on 03/31/2024 9:50:38 AM Referred By: Confirmed By:Hubert Zelaya
--- NOTE | 2024-03-30 16:34 | EDS_ITS ---
HPI History of Present Illness Chief Complaint: Back Informant: patient Onset/Context/Timing Onset: Hours Context: Sudden Onset Timing: Continuous Quality: Sharp Location: Thoracic, Lumbar and - (Abdomen and lower chest.) Current Severity: Moderate Maximum Severity: Moderate Relieved by: Bending Forward Associated Symptoms Associated Symptoms: Abdominal Pain; Negative for Numbness, Tingling, Radiation to Right Leg, Radiation to Left Leg, Fever, Unable to Ambulate, Unable to Transfer, Urinary Retention, Urinary Incontinence, Constipation or Fecal Incontinence Narrative Narrative: 38-year-old male history of fibromyalgia. Said he was at work today around noon and sudden onset of lower thoracic back pain that radiates wraps around his lower rib cage into his abdomen and now lower abdomen. Said it was sudden. No prior history. No falls or trauma. No arm or leg weakness. No fever. Denies any nausea, vomiting or diarrhea. Has had a prior cholecystectomy. No dysuria or melena. Prior similar symptoms: No Recent Illness/Hospitalization: No [facility] Medical History Wears glasses Depression Anxiety Injury of head and neck Dietary restriction History of diverticulitis History of IBS Former smoker History of stress test Mesenteric adenitis Abdominal pain Mesenteric adenitis Diverticulosis Orchitis Spasm of bowel Gastritis Hypertriglyceridemia Empty sella Tinea corporis Home Medications ?Medication ?Instructions ?Recorded ?Last Taken ?Type pantoprazole 40 mg tablet,delayed 40 mg PO DAILY #60 tabs 09/24/21 Unknown Rx release (Protonix) sucralfate 100 mg/mL oral 10 ml PO QAC #1,000 mL 09/24/21 Unknown Rx suspension (Carafate) meclizine 25 mg tablet 25 mg PO TID PRN dizziness #14 tabs 11/02/21 Unknown Rx Allergy/AdvReac Type Severity Reaction Status Date / Time No Known Allergies Allergy Verified 03/30/24 13:44 Surgical History History of testicular surgery History of cholecystectomy Social History Smoking Status: Former smoker ROS ROS ED ROS Narrative Back pain today radiating to his lower chest and abdomen. More awake she no recent illness. Review of Systems ROS Unobtainable: Denies due to encephalopathy Constitutional Constitutional ED: Denies chills or fever(s) Eyes Eyes: Denies blurry vision ENT ENT ED: Denies ear pain Cardiovascular Cardiovascular: Reports chest pain Respiratory/Chest Respiratory/Chest: Denies dyspnea Gastrointestinal Gastrointestinal: Reports abdominal pain; Denies constipation, diarrhea, melena, nausea or vomiting Genitourinary Genitourinary ED: Denies dysuria or hematuria Musculoskeletal Musculoskeletal: Reports back pain; Denies arthralgias or neck pain Integumentary Denies abscess Neurologic Neurologic: Denies headache(s), paresthesias or weakness Psychiatric Psychiatric: Denies anxiety or depression Endocrine Endocrinology: Denies cold intolerance Hematologic/Lymphatic Hematologic/Lymphatic: Denies easy bleeding or easy bruising Allergic/Immunologic Allergic/Immunologic ED: Denies mouth swelling, tongue swelling, urticaria or other EXAM Physical Exam Narrative Exam Narrative: 38-year-old male with leg pain vital signs stable afebrile. Pulse ox 90% on room air no signs hypoxia. H EENT exam unremarkable. Neck nontender. Lungs clear to auscultation bilaterally. Heart regular rhythm no murmur. Chest wall ribs nontender. Abdomen soft nondistended normal bowel sounds no peritoneal sig ns. No hernia or mass. He complains of pain in his lower abdomen but is not reproducible. There is no McBurney's point or right upper quadrant tenderness. His back he complains of pain to his lower thoracic and lumbar spine area but says it is deeper and I cannot reproduce. There is no signs of trauma. No bruising redness or warmth. Moving all 4 extremities. 5 abduction. Dorsi plantarflexion intact. Normal strength and sensation. Const Vital Signs: 03/30/24 13:44 03/30/24 17:44 Temperature 98.1 F Temperature Source Temporal Pulse Rate 70 58 L Respiratory Rate 18 17 Blood Pressure 115/83 H 106/65 Blood Pressure Mean 93 78 Pulse Ox 98 98 Oxygen Delivery Method Room Air Room Air Positive well nourished and well developed; Negative for cachectic, contractures or unkempt General Appearance ED: well developed and NAD; Negative for unkempt, cachectic, contractures or pallor Nutritional Appearance: Negative for cachectic HEENT Reports moist mucous membranes Negative for trauma or tenderness Eyes PERRL and EOMs intact bilaterally General Eye ED: Negative for pale conjunctiva or scleral icterus Neck no lymphadenopathy, supple and no JVD General: Negative for tenderness Thyroid: Negative for other Chest Wall Chest: Negative for other Resp normal respiratory effort and clear to auscultation bilaterally Effort and Inspection: Negative for pain with movement Auscultation: Negative for rales, rhonchi, wheezes or diminished lung sounds Cardio regular rate, regular rhythm, S1 normal heart sound, S2 normal heart sound and no murmurs Palpation: Negative for palpable S3 Rate: Negative for bradycardia or tachycardic Rhythm: Negative for abnormal rhythm Bruits: Negative for other GI normal to inspection, nondistended, normoactive bowel sounds, soft to palpation, non-tender, non-distended and no masses Inspection: Negative for abdominal distention Palpation: Negative for tender, guarding or rebound tenderness present Back/Spine normal to inspection and no thoracic nor lumbar tenderness Back/Spine Narrative: Complaining of lower thoracic and lumbar pain is not reproducible. General Back: Negative for CVA tenderness Cervical Spine: Negative for cervical spine tenderness Thoracic Spine / Upper Back: Negative for paraspinal muscle tenderness Lumbar Spine / Lower Back: Negative for ROM limited Extremity normal to inspection and no clubbing, cyanosis or edema General Extremety ED: Negative for edema or tenderness General Extremity: Negative for edema Neuro oriented x3 and no sensory deficits noted Sensorium / Orientation: alert; Negative for confused, lethargic or stuporous Motor Exam: strength 5/5 throughout Psych mental status grossly normal Appearance: Negative for unkempt Attitude: No agitated and No other Mood & Affect: Negative for depressed, sad or tearful Skin no rashes or lesions noted and no wounds General Skin Exam: Negative for jaundice or pallor Lesions: No lesion noted Rashes: No rashes noted Trauma: Negative for abrasion or puncture Wounds: Negative for wounds noted MDM MDM MDM Narrative Medical decision making narrative: 38-year-old male with lower thoracic and lumbar pain radiating to his lower chest, and abdomen. His exam is benign. I think this may be musculoskeletal as a history of fibromyalgia but when he complained of the abdominal pain I will get a CAT scan and labs. Patient be treated with morphine, Toradol and Zofran for pain. Repeat exam at 6:18 PM patient still complaining of pain. His exam is benign. We went over his test results. Clinically I do not think this is dissection. Pains in his lower back. His abdomen is benign and his CAT scan of his abdomen is unremarkable. I do not he needs any other tests. He will be treated another dose of morphine discharged home with Tylenol and Motrin for pain. History & Record Review Discussion w/independent historian: Patient and Family Lab Data Attestation: I reviewed the patient's lab results. Lab results narrative: CBC normal. White count of 5. H&H 15 and 43. Platelets 187. Electrolytes unremarkable gap 4. Normal BUN and creatinine. Glucose 107. Liver enzymes normal. Lipase normal at 28. UA normal. No white or red cells. No nitrates. Bladder. Abdominal CT and chest x-ray unremarkable. Troponin normal at 4. Labs: Laboratory Results - last 24 hr 03/30/24 03/30/24 16:41 16:42 WBC 5.3 RBC 5.15 Hgb 15.2 Hct 43.8 MCV 85.0 MCH 29.5 MCHC 34.7 RDW Std Deviation 37.3 RDW Coeff of Cassandra 12.1 Plt Count 187 MPV 9.8 Immature Gran % (Auto) 0.400 Neut % (Auto) 50.9 Lymph % (Auto) 38.0 [place] % (Auto) 9.0 Eos % (Auto) 1.3 Baso % (Auto) 0.4 Absolute Neuts (auto) 2.7 Absolute Lymphs (auto) 2.02 Nucleated RBC % 0 Sodium 138 Potassium 3.7 Chloride 106 Carbon Dioxide 28.0 Anion Gap 4 L BUN 11 Creatinine 1.08 Estim Creat Clear Calc 86.56 Est GFR (MDRD) Af Amer 99 Est GFR (MDRD) Non-Af 82 BUN/Creatinine Ratio 10.2 Glucose 107 H Calcium 9.1 Total Bilirubin 0.70 AST 38 H ALT 76 H Alkaline Phosphatase 111 Troponin I High Sens 4 Total Protein 7.5 Albumin 4.1 Globulin 3.4 Albumin/Globulin Ratio 1.2 Lipase 28 Urine Color Yellow Urine Clarity Clear Urine pH 7.0 Ur Specific [place] 1.005 Urine Protein Negative Urine Glucose (UA) Normal Urine Ketones Negative Urine Occult Blood Negative Urine Nitrite Negative Urine Bilirubin Negative Urine Urobilinogen Normal Ur Leukocyte Esterase Negative Urine RBC 0 SEEN Urine WBC 0 SEEN Ur Squamous Epith Cells 0-5 SEEN Urine Bacteria 0 SEEN Urine Mucus 0 SEEN Radiography Chest X-Ray - ED: 1 View, Read by ED Physician, Read by Radiologist, Normal, Heart, Lungs, Mediastinum, Bony Structures and No Acute Disease Diagnostic Testing: Clinical Impression(s) from Imaging Studies Abdomen/Pelvis CT 03/30/24 16:33 IMPRESSION: Findings which may be consistent with mild nonspecific enteritis. Clinical correlation recommended in this regard No evidence for small bowel obstruction or other acute abnormality status post cholecystectomy Electronically Signed: Manas Viramontes MD at 17:52 EDT , Chest X-Ray 03/30/24 16:55 IMPRESSION: Normal x-ray examination of the chest. Electronically Signed: Manas Viramontes MD at 17:21 EDT , Chest x-ray, portable, single view interpreted by myself and the radiologist shows no acute abnormality. Normal cardiac silhouette mediastinum. Rhythm Strip Rhythm Strip: Sinus Rhythm Rate: 57 Ectopy: None EKG Initial EKG: Attestation: I personally reviewed and interpreted this EKG as follows: Interpretation: Sinus Rhythm and No Acute Injury Pattern Comments: Sinus bradycardia rate of 57. Inverted T wave in lead III. No acute signs of SC or ischemia. No old EKG available for comparison. Discharge Plan Triage Chief Complaint: Back ED Provider: Juventino Berman Dx/Rx/DC Orders Clinical Impression: Back pain, History of fibromyalgia Instructions: ED Back Pain (Acute or Chronic) Prescriptions: No Action meclizine 25 mg tablet 25 mg PO TID PRN (Reason: dizziness) Qty: 14 0RF sucralfate [Carafate] 100 mg/mL suspension 10 ml PO QAC Qty: 1000 0RF Rx Instructions: Take three times a day, one hour before meals on an empty stomach for thirty days. pantoprazole [Protonix] 40 mg tablet,delayed release (DR/EC) 40 mg PO DAILY Qty: 60 2RF Rx Instructions: Take two times a day for eight weeks then once a day for eight weeks then stop. Primary Care Provider: Isaac Rayn Referrals: Isaac Ryan MD [Primary Care Provider] - 1-2 Days if not improving Activity Restrictions/Additional Instructions: Motrin and Tylenol for pain. Follow-up your primary care physician not improving. Your CAT scan, chest x-ray and labs today were unremarkable. I do not have a specific cause for your pain that may be musculoskeletal. It may be related to your fibromyalgia. Print Language: Barbadian Disposition Disposition: Home, Self Care
[2024-03-30] MEDS: Ondansetron 4 MG/2 ML Vial IV (16:42)
[2024-03-30] MEDS: Ketorolac 30 MG/ML Syringe IV (16:43)
[2024-03-30] MEDS: morphine 8 MG/ML Syringe IV (16:43)
[2024-03-30 16:50] LABS: Bacteria 0 SEEN /hpf (None Seen); Mucous, Urine 0 SEEN /hpf (<or=2+); Red Blood Cells-Urine 0 SEEN /hpf (0-5); White Blood Cells 0 SEEN /hpf (0-5)
[2024-03-30 16:52] LABS: Absolute Lymphocyte Count 2.02 X10^3/uL (0.83-4.51); Absolute Neutrophil Count 2.7 X10^3/uL (2.0-7.7); Basophil# 0.02 X10^3/uL; Basophil% 0.4 % (0-1); Eosinophil# 0.07 X10^3/uL; Eosinophils% 1.3 % (0-5); Hematocrit 43.8 % (40-54); Hemoglobin 15.2 g/dL (13.0-16.5); Lymphocyte # 2.02 X10^3/ul (0.83-4.51); Mean Corp Hgb Conc 34.7 g/dL (32-36); Mean Corpuscular Hgb 29.5 pg (27.0-32.0); Mean Platelet Vol. 9.8 fl (6.2-12.0); Monocyte# 0.48 X10^3/uL; NRBC Flagged by Analyzer 0 % (0-5); Neutrophil # 2.71 X10^3/uL (2.7-7.7); Neutrophil % 50.9 % (47-70); Platelet Count 187 K/mm3 (150-450); RBC Distribution Width CV 12.1 % (11.6-14.6); RBC Distribution Width SD 37.3 fl (35.1-43.9); Red Blood Count 5.15 M/mm3 (4.6-6.2); White Blood Count 5.3 K/mm3 (4.4-11.0)
[2024-03-30 16:55] LABS: Color, Urine Yellow (Yellow); Glucose, Dipstick Normal (Normal); Ketone-Dipstick Negative (Negative); Leukocyte Esterase-Dipstick Negative /ul (Negative); Nitrite-Dipstick Negative (Negative); Occult Blood-Urine Negative /ul (Negative); Protein-Dipstick Negative (Negative); Specific Gravity, Urine 1.005 (1.002-1.030); Urine Bilirubin Dipstick Negative (Negative); Urine Clarity Clear (Clear); Urine Urobilinogen Normal (Normal)
--- NOTE | 2024-03-30 16:55 | RAD_ITS ---
STUDY: X-RAY CHEST REASON FOR EXAM: Male, 38 years old. atypical back pain TECHNIQUE: AP portable COMPARISON: None. FINDINGS: The lungs are clear and expanded. There is no demonstrated pleural abnormality. Normal size heart. Normal mediastinum and danii. Normal visualized pulmonary arteries. Normal visualized aortic arch and descending thoracic aorta. Normal visualized thoracic spine. Normal visualized ribs, clavicles, and shoulders. Postop changes in the right upper quadrant. RAD/Chest 1 View (Portable) IMPRESSION: Normal x-ray examination of the chest. Electronically Signed: Manas Viramontes MD at 17:21 EDT ,
[2024-03-30 17:02] LABS: Squamous Epithelial Cells - UA 0-5 SEEN /hpf (0-5)
[2024-03-30 17:09] LABS: ALB/GLOB Ratio 1.2 RATIO (0.9-2.4); AST(SGOT) 38 U/L (15-37); Alanine Aminotransfer ALT/SGPT 76 U/L (16-61); Albumin, Serum 4.1 g/dL (3.2-5.0); Alkaline Phosphatase 111 U/L (45-117); Anion Gap 4 (5-15); BUN 11 mg/dL (7-18); BUN/Creat Ratio 10.2 RATIO (10-20); Calcium,Total 9.1 mg/dL (8.5-10.1); Chloride 106 mmol/L (98-107); Creatinine, Serum 1.08 mg/dL (0.70-1.30); EST Glomerular Filtration Rate 82 mL/min (>60); Est Glom Filt Rate - Afr Amer 99 mL/min (>60); Estimated Creatinine Clearance 86.56 ml/min; Globulin 3.4 g/dL (2.2-4.2); Glucose 107 mg/dL (74-106); Lipase 28 U/L (13-75); Potassium 3.7 mmol/L (3.5-5.1); Protein, Total 7.5 g/dL (6.4-8.2); Sodium Level 138 mmol/L (136-145)
[2024-03-30 17:44] VITALS: BP 106/65; PULSE 58; RESP 17; O2SAT 98
[2024-03-30] MEDS: morphine 8 MG/ML Syringe 6 MG IV (18:33)
[2024-03-30 19:03] LABS: Troponin-I HS 4 pg/mL (3.0-78.0)
[2024-03-30 19:57] VITALS: BP 107/72; PULSE 55; RESP 17; TEMP 37.1; O2SAT 96
== END 2024-03-30 20:01 | disposition home or self-care (01) ==
PROVIDERS: Emergency Provider Emergency Medicine; PCP Family Medicine; Visit Provider Emergency Medicine
DX: M54.6 Pain in thoracic spine (principal); Z87.891 Personal history of nicotine dependence; Z90.49 Acquired absence of other specified parts of digestive tract; M79.7 Fibromyalgia
CPT/HCPCS: 71045; 74177; 80053; 81001; 83690; 84484; 85025; 93005; 96374; 96375; 96376; 99284; Q9967; A4216; J2405